=== PATIENT | female | born 1995 | race Caucasian/White ===

== ENCOUNTER → 2017-01-07 | Outpatient (CLI) | payer BC ==
[~2017-01-07] MED LIST: BIRTH CONTROL PILL; CATHETER FLUSH 10 ML SYR IV PRN; OXYC-197 PO; PRD20T PO
--- OUTSIDE RECORDS SUMMARY | 2017-01-07 11:34 | XMS REPORT | Continuity of Care Document ---
Author Author Interface Organization Interface Address Unknown Phone Unavailable Problems Problem Status Onset Date Classification Date Reported Comments Source Medications Medication Details Route Status Patient Instructions Ordering Provider Order Date Source ProAir HFA 90 mcg/inh inhalation aerosol with adapter INH Active 2 puffs 30 minutes before physical activity and every 4 hours as needed for cough, wheeze, SOB KEPUS 12/25/2012 [facility] Tylenol Cold & Flu Severe PO Documented 12/25/2012 [facility] Allergies, Adverse Reactions, Alerts Substance Category Reaction Severity Reaction type Status Date Reported Comments Source NKA Datatype(AL1.2)-Drug Allergy ACTIVE 09/20/2014 [facility] Immunizations Immunization Date Given Site Status Last Updated Comments Source Results Order Name Results Value Reference Range Date Interpretation Comments Source So Restless it is Hard to Sit Still So Restless it is Hard to Sit Still 09/20/2014 [facility] Office/Clinic Notes Office/Clinic Notes Patient: HILL ZAMARRIPA Age: 19 years Sex: Female : 97 Associated Diagnoses: None Author: Norm Welch APRN Visit Information Visit type: New symptom. Accompanied by: No one. Source of history: Self. Referral source: Self. History limitation: None. Chief Complaint Reason For Visit: Patient states she has been real sick for a week. She has had diarreah and emisis last week. States that her doctor in [place] gave her nausea medicine, but she still feels sick. She states it has gone into her head and chest. Additional Information: She states she is congested and has been coughing. Also she has a headache and aches and pains throughout her body. History of Present Illness Hill has had sx for the past week. Her sx began with n/v awakened her at 0300 and watery diarrhea, continued for 2 days. She had chills, fever and now chest and head congestion, sore throat. Review of Systems Constitutional: Fever, Chills, Fatigue, No sweats, No weakness. Eye: No discharge, No visual disturbances. Ear/Nose/Mouth/Throat: Nasal congestion, Sore throat, No ear pain. Respiratory: Cough, No shortness of breath, No sputum production, No wheezing. Cardiovascular: No chest pain, No syncope. Gastrointestinal: Nausea, Vomiting, Diarrhea, No constipation, No abdominal pain. Genitourinary: No dysuria, No change in urine stream. Gynecologic: Last menstrual period: 09/06/14. Hematology/Lymphatics: No bruising tendency, No bleeding tendency. Endocrine Immunologic: No recurrent fevers, No recurrent infections. Musculoskeletal: No back pain, No neck pain. Integumentary: No rash, No pruritus. Neurologic: Alert and oriented X4, Headache, No numbness, No tingling. 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 Procedure History: Tonsillectomy, primary or secondary; under age 14 (48999) in 2006 at 11 Years. Social History Alcohol Use Alcohol Use: Denies Caffeine Use Caffeine Use: Current Caffeine Type: Coffee Caffeine Frequency: Daily Current Tobacco Usage: Denies Education: High school Recreational Drug Use Recreational Drug Use: Denies . Physical Examination General: Alert and oriented, No acute distress. Eye: Normal conjunctiva. HENT: Normocephalic, Oral mucosa is moist, No pharyngeal erythema. Ear: Both ears, Tympanic membrane ( Intact, Calix ). Nose: Both nostrils, Within normal limits, Patent. Sinus: Bilateral, Frontal sinus, Maxillary sinus, No tenderness. Throat: Pharynx ( Posterior, thick clear drainage ). Neck: Supple. Respiratory: Lungs are clear to auscultation, Respirations are non-labored, Breath sounds are equal, Symmetrical chest wall expansion. Cardiovascular: Normal rate, Regular rhythm, No murmur, No gallop. Gastrointestinal: Soft, Non-tender, Non-distended, Normal bowel sounds. Musculoskeletal: Normal gait. Integumentary: Warm, Dry, No pallor, No rash. Neurologic: Alert, Oriented, Cranial Nerves II-XII are grossly intact, Normal deep tendon reflexes, no meningismus. Psychiatric: Appropriate mood & affect, Normal judgment. Review / Management Results review: Lab results 09/20/14 13:42 POC-Bilirubin Urine Dipstick Negative POC-Blood Urine Dipstick Negative POC-Glucose Urine Dipstick Negative POC-Ketones Urine Dipstick Negative POC-Leukocytes Urine Dipstick Negative POC-Nitrite Urine Dipstick Negative POC-pH Urine Dipstick 7 POC-Protein Urine Dipstick Negative POC-Specific [place] Urine Dipstick 1.020 POC-Urine Appearance Urine Dipstick Cloudy POC-Urine Color Urine Dipstick Yellow POC-Urobilinogen Urine Dipstick 0.2 mg/dl UA Office-Clinic Office-Clinic , All Results 09/20/2014 12:43 Height 170.1 cm Weight 62.2 kg BSA 1.7143 m2 Body Mass Index 21.5 kg/m2 BMI Percentile 55.33 Temperature Oral 36.9 DegC Peripheral Pulse Rate 77 bpm Respiratory Rate 16 br/min Systolic Blood Pressure 100 mmHg Diastolic Blood Pressure 68 mmHg Mean Arterial Pressure. 78.67 mmHg Blood Pressure Location Right arm Laterality-Pain 1 Left Location-Pain 1 Head Intensity-Pain 6 Pain Symptoms Yes Oxygen Therapy Room air Oxygen Saturation 98 % . Impression and Plan Diagnosis Cough (ICD9 786.2). Headache (ICD9 307.81). Nausea (ICD9 787.02). Orders Orders (Selected) Outpatient Orders Completed Office-Clinic: . discussed sx with pt, improving, continue to keep hydrated, ibuprofen OTC for headache, if new onset of sx or sx worsen RTC, Zofran (rx from PCP in [place]) for nausea. May return to school 09/22/14. Counseled: Patient, Regarding diagnosis, Regarding treatment, Regarding medications. Patient Instructions: INFLUENZA (Adult), Influenza, Adult Self-Care for Colds and Flu. [Electronically Signed on 09.20.2014 02:37 PM]
Norm Welch APRN
</br> 09/20/2014 [Electronically Signed on 09.20.2014 02:37 PM] Norm Welch MAKI Ramesh [facility] SMEG-Follow up routine physicals&immuns SMEG-Follow up routine physicals&immuns No No No No No No No No No 12/25/2012 [facility] Office/Clinic Notes Office/Clinic Notes <div><p style="margin:0pt; text-align:center"><span style= "background-color:#ffffff; font-family:[place]; font-size:10pt; font-weight:bold"> [facility]</span></p><p style="margin:0pt; text-align :center"><span style="background-color:#ffffff; font-family:[place]; font-size: 10pt; font-weight:bold">[address] [place] [address]</span></p><p style="margin:0pt; text-align:center"><span style="background-color:#ffffff; font-family:[place]; font-size:10pt; font-weight:bold">[place] [address]</span></p><p style= "margin:0pt; text-align:center"><span style="background-color:#ffffff; font- family:[place]; font-size:10pt; font-weight:bold">[phone] </ span></p><p style="margin:0pt; text-align:center"><span style="font-family:[place] ; font-size:10pt; font-weight:bold"></span></p><p style="margin:0pt"><span style="background-color:#ffffff; font-family:[place]; font-size:10pt">PATIENT: HILL ZAMARRIPA</span></p><p style="margin:0pt"><span style="background-color: #ffffff; font-family:[place]; font-size:10pt">MR #: [id number]</span></p><p style= "margin:0pt"><span style="background-color:#ffffff; font-family:[place]; font-size :10pt"> </span></p><p style="margin:0pt"><span style= "background-color:#ffffff; font-family:[place]; font-size:10pt">: 1994</span></p><p style="margin:0pt"><span style="background-color:#ffffff; font -family:[place]; font-size:10pt">DATE SEEN: 12/25/2012</span></p><p style="margin: 0pt"><span style="font-family:[place]; font-size:10pt"></span></p><p style= "margin:0pt"><span style="font-family:[place]; font-size:10pt"></span></p><p style="margin:0pt"><span style="background-color:#ffffff; font-family:[place]; font-size:10pt; font-weight:bold">Chief Complaint</span></p><p style="margin:0pt "><span style="background-color:#ffffff; font-family:[place]; font-size:10pt"> Patient presents today for sore throat and shortness of breath with exertion.</ span></p><p style="margin:0pt"><span style="background-color:#ffffff; font- family:[place]; font-size:10pt">Additional Information: Mack[place]</span></p><p style="margin:0pt"><span style="font-family:[place]; font-size:10pt"></span></p>< p style="margin:0pt"><span style="background-color:#ffffff; font-family:[place]; font-size:10pt; font-weight:bold">History of Present Illness</span></p><p style= "margin:0pt"><span style="background-color:#ffffff; font-family:[place]; font-size :10pt">Patient has sore throat, headache and stuffiness for a couple of days. She was short of breath this morning when she was practicing. She does not have a history of asthma or allergies. She has a tournament coming up tomorrow. She is going to see if she is okay to play.</span></p><p style="margin:0pt"><span style="font-family:[place]; font-size:10pt"></span></p><p style="margin:0pt">< span style="background-color:#ffffff; font-family:[place]; font-size:10pt; font- weight:bold">Review of Systems </span></p><p style="margin:0pt"><span style= "background-color:#ffffff; font-family:[place]; font-size:10pt">Positive per HPI for sore throat, headache, shortness of breath on exertion and stuffiness. Negative fever, chills, weight gain, weight loss, sinus congestion, ear pain, swollen glands, blurry vision, double vision, changes in vision. Negative dizziness, numbness, weakness. Negative chest pain, palpitations, edema, cough, wheezing, dyspnea on exertion. Negative heartburn, nausea, vomiting, diarrhea, constipation, abdominal pain, urinary frequency, urinary urgency, urinary incontinence, bowel incontinence, rectal bleeding. Negative ecchymosis, skin lesions, itching, rash. Negative joint pain, neck pain, back pain. Negative faintness, numbness, convulsions, tremors. Negative depression, anxiety, insomnia, suicidal ideations, homicidal ideations. Negative breast nodules, discharge or pain. Negative vaginal discharge or pain. Negative irregular menses , heavy menses, pain with menses.</span></p><p style="margin:0pt"><span style= "font-family:[place]; font-size:10pt"></span></p><p style="margin:0pt"><span style="background-color:#ffffff; font-family:[place]; font-size:10pt; font-weight: bold">Allergies</span></p><p style="margin:0pt"><span style="background-color:# ffffff; font-family:[place]; font-size:10pt">No allergy data found.</span></p><p style="margin:0pt"><span style="font-family:[place]; font-size:10pt"></span></p>< p style="margin:0pt"><span style="background-color:#ffffff; font-family:[place]; font-size:10pt; font-weight:bold">Current Medications</span></p><p style="margin :0pt"><span style="background-color:#ffffff; font-family:[place]; font-size:10pt"> Tylenol Cold & Flu Severe (APAP/dextromethorphan/guaifenesin/PE), 2 Tab, Every 4 hours</span></p><p style="margin:0pt"><span style="font-family:[place]; font- size:10pt"></span></p><p style="margin:0pt"><span style="background-color:# ffffff; font-family:[place]; font-size:10pt; font-weight:bold">Problems and Past Medical History</span></p><p style="margin:0pt"><span style="background-color:# ffffff; font-family:[place]; font-size:10pt; text-decoration:underline">Active</ span></p><p style="margin:0pt"><span style="background-color:#ffffff; font- family:[place]; font-size:10pt">Leoma-Guillain syndrome</span></p><p style="margin :0pt"><span style="font-family:[place]; font-size:10pt"></span></p><p style= "margin:0pt"><span style="background-color:#ffffff; font-family:[place]; font-size :10pt; font-weight:bold">Family History</span></p><p style="margin:0pt">< span style="background-color:#ffffff; font-family:[place]; font-size:10pt; text- decoration:underline">Cardiovascular Peds History</span></p><p style="margin:0pt "><span style="background-color:#ffffff; font-family:[place]; font-size:10pt"> High Blood Pressure Medical History: Mother</span></p><p style="margin:0pt">< span style="background-color:#ffffff; font-family:[place]; font-size:10pt; text- decoration:underline">Family Status</span></p><p style="margin:0pt"><span style= "background-color:#ffffff; font-family:[place]; font-size:10pt">Father: Living< /span></p><p style="margin:0pt"><span style="background-color:#ffffff; font- family:[place]; font-size:10pt">Sister 1: Living</span></p><p style="margin:0pt">< span style="background-color:#ffffff; font-family:[place]; font-size:10pt">Mother : Living</span></p><p style="margin:0pt"><span style="background-color:#ffffff; font-family:[place]; font-size:10pt">Paternal Grandfather: Living</span></p><p style="margin:0pt"><span style="background-color:#ffffff; font-family:[place]; font-size:10pt">Paternal Grandmother: Living</span></p><p style="margin:0pt">< span style="background-color:#ffffff; font-family:[place]; font-size:10pt"> Maternal Grandfather: Living</span></p><p style="margin:0pt"><span style= "background-color:#ffffff; font-family:[place]; font-size:10pt">Maternal Grandmother: </span></p><p style="margin:0pt"><span style="background- color:#ffffff; font-family:[place]; font-size:10pt">Brother 1: Living</span></p>< p style="margin:0pt"><span style="background-color:#ffffff; font-family:[place]; font-size:10pt; text-decoration:underline">Oncologic Peds Health History</span>< /p><p style="margin:0pt"><span style="background-color:#ffffff; font-family: [place]; font-size:10pt">Leukemia Medical History: Grandparents</span></p><p style ="margin:0pt"><span style="background-color:#ffffff; font-family:[place]; font- size:10pt; text-decoration:underline">Respiratory Peds Health History</span></p> <p style="margin:0pt"><span style="background-color:#ffffff; font-family:[place]; font-size:10pt">Asthma Medical History: Mother</span></p><p style="margin:0pt">< span style="background-color:#ffffff; font-family:[place]; font-size:10pt"> Pneumonia Medical History: Mother</span></p><p style="margin:0pt"><span style= "background-color:#ffffff; font-family:[place]; font-size:10pt">Frequent Bronchitis Medical History: Mother</span></p><p style="margin:0pt"><span style="background-color:#ffffff; font-family:[place]; font-size:10pt">Family Status Reviewed With Patient: Review complete</span></p><p style="margin:0pt"&gt ;<span style="font-family:[place]; font-size:10pt"></span></p><p style="margin: 0pt"><span style="background-color:#ffffff; font-family:[place]; font-size:10pt; font-weight:bold">Procedure History</span></p><p style="margin:0pt"><span style="background-color:#ffffff; font-family:[place]; font-size:10pt"> Tonsillectomy, primary or secondary; under age 14 at 03/2006.</span></p><p style ="margin:0pt"><span style="font-family:[place]; font-size:10pt"></span></p><p style="margin:0pt"><span style="background-color:#ffffff; font-family:[place]; font-size:10pt; font-weight:bold">Social History</span></p><p style="margin:0pt "><span style="background-color:#ffffff; font-family:[place]; font-size:10pt"> Current Tobacco Usage: Denies</span></p><p style="margin:0pt"><span style= "background-color:#ffffff; font-family:[place]; font-size:10pt">Pediatric Patient Education Level: 10th Grade</span></p><p style="margin:0pt"><span style= "background-color:#ffffff; font-family:[place]; font-size:10pt">School Attending: [employer]</span></p><p style="margin:0pt"><span style="font-family:[place]; font-size:10pt"></span></p><p style="margin:0pt"><span style="background-color: #ffffff; font-family:[place]; font-size:10pt; font-weight:bold">Physical Examination</span></p><p style="margin:0pt"><span style="background-color:# ffffff; font-family:[place]; font-size:10pt; text-decoration:underline">TEMP </ span><span style="width:25.46pt; text-indent:0pt; display:inline-block; -aw- tabstop-align:left; -ks-xyvefvb-lzp:55pt"></span><span style="background-color:# ffffff; font-family:[place]; font-size:10pt; text-decoration:underline">BP </span> <span style="width:36.44pt; text-indent:0pt; display:inline-block; -aw-tabstop- align:left; -sr-dpjylsh-bdr:105pt"></span><span style="background-color:#ffffff ; font-family:[place]; font-size:10pt; text-decoration:underline">Pulse </ span><span style="width:27.08pt; text-indent:0pt; display:inline-block; -aw- tabstop-align:left; -en-hcfyreq-mdh:155pt"></span><span style="background-color: #ffffff; font-family:[place]; font-size:10pt; text-decoration:underline">RR </span ><span style="width:35.18pt; text-indent:0pt; display:inline-block; -aw-tabstop- align:left; -id-kjwarna-col:205pt"></span><span style="background-color:#ffffff ; font-family:[place]; font-size:10pt; text-decoration:underline">MAP </span>< span style="width:26.43pt; text-indent:0pt; display:inline-block; -aw-tabstop- align:left; -su-maredat-yfb:255pt"></span><span style="background-color:# ffffff; font-family:[place]; font-size:10pt; text-decoration:underline">O2 Sat </ span></p><p style="margin:0pt"><span style="background-color:#ffffff; font- family:[place]; font-size:10pt">36.5</span><span style="width:37.79pt; text-indent :0pt; display:inline-block; -ap-kilpddb-fsaes:left; -kh-dysxkhb-ybs:55pt"></span ><span style="background-color:#ffffff; font-family:[place]; font-size:10pt">110/ 70</span><span style="width:20.94pt; text-indent:0pt; display:inline-block; -aw- tabstop-align:left; -ry-hqplsei-oxt:105pt"></span><span style="background-color: #ffffff; font-family:[place]; font-size:10pt">65</span><span style="width:40pt; text-indent:0pt; display:inline-block; -nd-hpsufld-szndq:left; -ks-wcpxkcw-pnx: 155pt"></span><span style="background-color:#ffffff; font-family:[place]; font- size:10pt">22</span><span style="width:40pt; text-indent:0pt; display:inline- block; -jv-czhondj-wkvqi:left; -vs-teiwybb-hkn:205pt"></span><span style= "background-color:#ffffff; font-family:[place]; font-size:10pt">83.33</span><span style="width:27.79pt; text-indent:0pt; display:inline-block; -dr-bqxbkgs-ehmcq: left; -qg-ihiszxx-bhz:255pt"></span><span style="background-color:#ffffff; font- family:[place]; font-size:10pt">100</span></p><p style="margin:0pt"><span style= "font-family:[place]; font-size:10pt"></span></p><p style="margin:0pt"><span style="background-color:#ffffff; font-family:[place]; font-size:10pt">Blood Pressure Location: Right arm </span></p><p style="margin:0pt"><span style="font- family:[place]; font-size:10pt"></span></p><p style="margin:0pt"><span style= "background-color:#ffffff; font-family:[place]; font-size:10pt; text-decoration: underline">Weight </span><span style="width:94.02pt; text-indent:0pt; display: inline-block; -ox-wxahmbd-hmogv:left; -kd-oflkjyx-psa:125pt"></span><span style= "background-color:#ffffff; font-family:[place]; font-size:10pt; text-decoration: underline">Height </span><span style="width:36.19pt; text-indent:0pt; display: inline-block; -vx-svmivtb-zpeum:left; -kl-vvszqdf-vhs:190pt"></span><span style= "background-color:#ffffff; font-family:[place]; font-size:10pt; text-decoration: underline">BMI </span><span style="width:29.8pt; text-indent:0pt; display:inline -block; -sj-nsomsan-xbevl:left; -hl-adomuuh-gxm:240pt"></span><span style= "background-color:#ffffff; font-family:[place]; font-size:10pt; text-decoration: underline">BSA </span></p><p style="margin:0pt"><span style="background-color:# ffffff; font-family:[place]; font-size:10pt">62.5 kg (137.79 lbs)</span><span style="width:49.47pt; text-indent:0pt; display:inline-block; -mn-kbmudhe-bcmor: left; -tw-tydswdy-fvj:125pt"></span><span style="background-color:#ffffff; font- family:[place]; font-size:10pt">170.1 cm</span><span style="width:29.28pt; text- indent:0pt; display:inline-block; -tn-yumyrmm-lnvbk:left; -rn-cwplgpu-uqs:190pt "></span><span style="background-color:#ffffff; font-family:[place]; font-size: 10pt">21.6 kg/m2</span><span style="width:5.6pt; text-indent:0pt; display:inline -block; -qb-bmbdxmo-oqtgk:left; -xb-uuvguks-qzh:240pt"></span><span style= "background-color:#ffffff; font-family:[place]; font-size:10pt">1.7185 m2</span></ p><p style="margin:0pt"><span style="font-family:[place]; font-size:10pt"></span> </p><p style="margin:0pt"><span style="background-color:#ffffff; font-family: [place]; font-size:10pt">A 17 year old female in no apparent distress. Awake and oriented x3. Normocephalic. Conjunctiva clear. Tympanic membrane unremarkable. Oropharynx is pink without exudate. Positive frontal and maxillary sinus tenderness. Neck is supple. Negative lymphadenopathy. Heart rate and rhythm is regular without murmur. Lungs are clear to auscultation bilaterally. Gait is steady. Neuro intact. Mental affect is appropriate.</span></p><p style="margin: 0pt"><span style="font-family:[place]; font-size:10pt"></span></p><p style= "margin:0pt"><span style="background-color:#ffffff; font-family:[place]; font-size :10pt; font-weight:bold">Impression</span></p><p style="margin:0pt"><span style= "background-color:#ffffff; font-family:[place]; font-size:10pt">1. Acute Sinusitis (461.9)</span></p><p style="margin:0pt"><span style="background-color: #ffffff; font-family:[place]; font-size:10pt">2. Reactive Airway Disease (493.90)< /span></p><p style="margin:0pt"><span style="font-family:[place]; font-size:10pt"> </span></p><p style="margin:0pt"><span style="background-color:#ffffff; font- family:[place]; font-size:10pt; font-weight:bold">Plan</span></p><p style="margin: 0pt"><span style="background-color:#ffffff; font-family:[place]; font-size:10pt; font-weight:bold">Medication changes this visit:</span></p><p style="margin:0pt "><span style="background-color:#ffffff; font-family:[place]; font-size:10pt; text -decoration:underline">New</span></p><p style="margin:0pt"><span style= "background-color:#ffffff; font-family:[place]; font-size:10pt">Amoxil 875 mg oral tablet, 875 mg, BID, 10 Day(s), Quantity: 20, Refills: 0</span></p><p style ="margin:0pt"><span style="background-color:#ffffff; font-family:[place]; font- size:10pt">ProAir HFA 90 mcg/inh inhalation aerosol with adapter, 2 Puff(s), QID , Quantity: 1, Refills: 0</span></p><p style="margin:0pt"><span style="font- family:[place]; font-size:10pt"></span></p><p style="margin:0pt"><span style= "background-color:#ffffff; font-family:[place]; font-size:10pt">I am going to go ahead and give her some amoxicillin twice a day for the next 10 days as well as a ProAir inhaler, she can use 2 puffs every 4 hours as needed for cough, wheeze , shortness of breath and definitely use it 15-30 minutes prior to her basketball practice and games. I am going to release her to play though as long as she is afebrile. Patient will follow up if she has any further concerns. </ span></p><p style="margin:0pt"><span style="font-family:[place]; font-size:10pt"> </span></p><p style="margin:0pt"><span style="font-family:[place]; font-size:10pt "></span></p><p style="margin:0pt"><span style="font-family:[place]; font-size: 10pt"></span></p><p style="margin:0pt"><span style="background-color:#ffffff; font-family:[place]; font-size:10pt">TR:</span><span style="width:14.48pt; text- indent:0pt; display:inline-block; -pd-tcqpqzs-rdipi:left; -xs-fypwpym-igt:30pt"> </span><span style="background-color:#ffffff; font-family:[place]; font-size:10pt ">[id number]</span></p><p style="margin:0pt"><span style="background-color:#ffffff ; font-family:[place]; font-size:10pt">DD:</span><span style="width:12.63pt; text- indent:0pt; display:inline-block; -xa-mdmpmkp-ytbie:left; -so-qycesxl-dcr:30pt"> </span><span style="background-color:#ffffff; font-family:[place]; font-size:10pt ">12/25/2012 12:35 </span></p><p style="margin:0pt"><span style="background- color:#ffffff; font-family:[place]; font-size:10pt">DT:</span><span style="width: 13.31pt; text-indent:0pt; display:inline-block; -wc-imyisyv-hxsmh:left; -aw- tabstop-pos:30pt"></span><span style="background-color:#ffffff; font-family: [place]; font-size:10pt">12/27/2012 14:28</span></p><p style="margin:0pt"><span style="font-family:[place]; font-size:10pt"></span></p><p style="margin:0pt "><span style="background-color:#ffffff; font-family:[place]; font-size:10pt">STEFANIE# :</span><span style="width:2.84pt; text-indent:0pt; display:inline-block; - os-qguhmpk-cudfj:left; -dw-mmmxovt-ehy:30pt"></span><span style="background- color:#ffffff; font-family:[place]; font-size:10pt">[id number]</span></p><p style= "margin:0pt"><span style="font-family:[place]; font-size:10pt"></span></p></div> [Electronically Signed on 01.01.2013 03:37 PM]
Stacy Landis APRN
</br> 12/25/2012 [Electronically Signed on 01.01.2013 03:37 PM] Stacy Landis APRN [facility] Vital Signs Vital Sign Value Date Comments Source Encounters Location Location Details Encounter Type Encounter Number Reason For Visit Attending Provider ADM Date DC Date Status Source [facility] [id number] SORE THROAT AND SOA STACY LANDIS 12/25/2012 Active [facility] [id number] EST CARE/POSS URI NORM WELCH 09/20/2014 Active [facility] He Walk in [facility] [id number] [address], Walk In 201212/01/2012 Active [facility] He Walk in [facility] [id number], Walk In 04/04/2015 Active [facility] Procedures Procedure Code Date Perfomer Comments Source
--- NOTE | 2017-01-07 13:57 | Diagnostic Imaging Report ---
EXAMINATION: HIDA with EF measurements Indication: Abdominal pain TECHNIQUE: After the intravenous administration of 5.3 mCi of Tc 99m Choletec, imaging over the abdomen was obtained. This was followed by administration of Ensure orally to stimulate intrinsic CCK secretion, followed by continued imaging with ejection fraction measured. FINDINGS: There is homogeneous uptake in the liver with prompt bile duct and gallbladder filling seen. Bowel activity is seen at 20 minutes. Based on further imaging and gallbladder area of interest activity measurements after the administration of Ensure, the gallbladder ejection fraction is estimated at 50%. IMPRESSION: 1. Normal hepatobiliary uptake and Gallbladder filling. 2. Borderline gallbladder ejection fraction. The patient complained of nausea after ensure ingestion. Correlate clinically. Dictated by: Dictated on workstation # [id number]
== END ==
LOC: CARD 11:30
PROVIDERS: ATTEND Nurse Practitioner Family
DX: R11.0 Nausea (principal); R19.7 Diarrhea, unspecified
CPT/HCPCS: 78227

== ENCOUNTER → 2017-01-09 | Outpatient (CLI) | payer BC ==
[~2017-01-09] MED LIST changes: -CATHETER FLUSH 10 ML SYR IV PRN
--- NOTE | 2017-01-09 12:24 | Diagnostic Imaging Report ---
PROCEDURE: US Gallbladder. TECHNIQUE: Multiple real-time grayscale images were obtained over the right upper quadrant in various projections. INDICATION: Right upper quadrant pain. FINDINGS: The pancreas appears unremarkable. The liver demonstrates no focal lesion. Hepatopetal flow in the portal vein is seen. The gallbladder demonstrates no stones or wall thickening. The CBD is 0.4 cm in caliber. The right kidney is 10.1 cm in length with no hydronephrosis or focal lesion. No fluid collection seen in the upper right abdomen. Sonographic Long's sign is reportedly negative. IMPRESSION: Unremarkable exam. Dictated by: Dictated on workstation # [id number]
== END ==
LOC: RAD 10:47
PROVIDERS: ATTEND Surgery
DX: R10.11 Right upper quadrant pain (principal)
CPT/HCPCS: 76705

== ENCOUNTER → 2017-01-11 | Outpatient (CLI) | payer BC | LOC: PREOP 05:34 | PROVIDERS: ATTEND Surgery | DX: Z01.818 Encounter for other preprocedural examination (principal); K82.8 Other specified diseases of gallbladder ==

== ENCOUNTER 2017-01-16 07:33 | Day surgery (SDC) | payer BC ==
[~2017-01-16] VITALS: Ht 170.2 cm; Wt 62.1 kg
[~2017-01-16 07:33] MED LIST changes: -BIRTH CONTROL PILL; -OXYC-197 PO
[2017-01-16] MEDS: LACTATED RINGERS 1,000 ML IV PRN ×2 (08:00→09:30)
[2017-01-16 08:01] LABS: MEAN PLATELET VOLUME 10.6 FL (7.4-10.4); RED BLOOD COUNT 4.96 10^6/uL (4.35-5.85); RED CELL DISTRIBUTION WIDTH 13.1 % (10.0-14.5); WHITE BLOOD COUNT 5.4 10^3/uL (4.3-11.0)
[2017-01-16] MEDS ORDERED: ceFAZolin 1,000 MG (ANCEF) VIAL ONE (08:03)
[2017-01-16] MEDS ORDERED: NS (IVPB) 50 ML ONE (08:03)
[2017-01-16] MEDS ORDERED: metroNIDAZOLE 500MG/100ML IVPB 100 ML ONE (08:03)
[2017-01-16] MEDS ORDERED: MIDAZOLAM 2 MG/2 ML (VERSED) VIAL ONE (08:06)
[2017-01-16] MEDS ORDERED: fentaNYL INJECTION 100 MCG/2 ML AMP ONE ×2 (08:06→10:39)
[2017-01-16] MEDS ORDERED: proPOfol 200 MG/20 ML (DIPRIVAN) VIAL IV ONE (08:06)
[2017-01-16] MEDS ORDERED: LIDOCAINE JELLY 2% (XYLOCAINE) 5 ML TUBE ONE (08:06)
[2017-01-16] MEDS ORDERED: LIDOCAINE PF 2% 10 ML (XYLOCAINE) AMP ONE (08:06)
[2017-01-16] MEDS ORDERED: DEXAMETHASONE PF 10 MG/ML (DECADRON) VIAL ONE (08:06)
[2017-01-16] MEDS ORDERED: ROCURONIUM 50 MG/5 ML (ZEMURON) VIAL IV ONE (08:06)
[2017-01-16] MEDS ORDERED: BUP/EPI 0.25% 1:200,000 (MARCAINE) 30 ML VIAL ONE (08:06)
[2017-01-16] MEDS ORDERED: ONDANSETRON 4 MG/2 ML (SDV) Z0FRAN ONE ×2 (08:06→10:28)
[2017-01-16] MEDS ORDERED: BIRTH CONTROL PILL (08:22)
[2017-01-16 08:24] LABS: ALANINE AMINOTRANSFERASE 22 U/L (0-55); ALBUMIN 4.4 G/DL (3.2-4.5); ANION GAP 10 MMOL/L (5-14); ASPARTATE AMINO TRANSFERASE 22 U/L (5-34); BILIRUBIN,TOTAL 0.5 MG/DL (0.1-1.0); BLOOD UREA NITROGEN 15 MG/DL (7-18); BUN/CREATININE RATIO 18; CALCIUM 9.4 MG/DL (8.5-10.1); CARBON DIOXIDE 23 MMOL/L (21-32); CHLORIDE 108 MMOL/L (98-107); CREATININE SERUM 0.84 MG/DL (0.60-1.30); GFR ESTIMATED > 60; GLUCOSE 86 MG/DL (70-105); POTASSIUM 4.1 MMOL/L (3.6-5.0); SODIUM 141 MMOL/L (135-145)
[2017-01-16 08:29] VITALS: BP 116/87
[2017-01-16] MEDS ORDERED: metroNIDAZOLE 500 MG/100 ML IVPB (PRE-MIX) IV ONE (08:30)
[2017-01-16] MEDS ORDERED: ceFAZolin 1 GM/NS 50 ML IVPB IV ONE ×2 (08:30)
[2017-01-16] MEDS ORDERED: CATHETER FLUSH 10 ML SYR IV PRN (08:30)
--- NOTE | 2017-01-16 08:58 | Progress Note-Pre Operative ---
Pre-Operative Progress Note H&P Reviewed The H&P was reviewed, patient examined and no changes noted. Date H&P Reviewed: Jan 16, 2017 Time H&P Reviewed: 08:58 Pre-Operative Diagnosis: Chronic cholecystitis TURNER CROWDER MD Jan 16, 2017 8:58 am
[2017-01-16] MEDS ORDERED: LACTATED RINGERS 1,000 ML IV ONE (09:33)
[2017-01-16] MEDS ORDERED: GLYCOPYRROLATE 0.2 MG/ML (ROBINUL) 2 ML VIAL ONE (09:49)
[2017-01-16] MEDS ORDERED: NEOSTIGMINE (BLOXIVERZ ) 1 MG/1ML 10 ML VIAL ONE (09:49)
[2017-01-16] MEDS ORDERED: SEVOFLURANE (ULTANE) 15 ML INHAL SOLN ONE ×4 (09:56)
--- NOTE | 2017-01-16 09:56 | Discharge Inst-Simple/Standard ---
Discharge Inst-Standard Discharge Medications New, Converted or Re-Newed RX: RX on Chart Patient Instructions/Follow Up Plan of Care/Instructions/FU: dressings off in 48 hours. Incentive spirometry.. Follow-up in 3 weeks. Activity as Tolerated: Yes Discharge Diet: No Restrictions TURNER CROWDER MD Jan 16, 2017 9:56 am
--- NOTE | 2017-01-16 09:56 | Progress Note-Post Operative ---
Post-Operative Progess Note Pre-Operative Diagnosis Chronic cholecystitis Post-Operative Diagnosis same Post-Op Procedure Note Date of Procedure: Jan 16, 2017 Name of Procedure: robotic-assisted cholecystectomy Anesthesia Type Gen. Estimated blood loss (mL): minimal Specimen(s) collected gallbladder TURNER CROWDER MD Jan 16, 2017 9:55 am
[2017-01-16] MEDS ORDERED: OXYC-197 PO (10:04)
--- NOTE | 2017-01-16 10:05 | Discharge Inst-Simple/Standard ---
Discharge Inst-Standard Discharge Medications New, Converted or Re-Newed RX: RX on Chart Patient Instructions/Follow Up Plan of Care/Instructions/FU: Dressings off in 48 hours. Incentive spirometry. F/U in 3 weeks Activity as Tolerated: Yes Discharge Diet: No Restrictions TURNER CROWDER MD Jan 16, 2017 10:05
[2017-01-16] MEDS ORDERED: ONDANSETRON 4 MG/2 ML (SDV) Z0FRAN IV ONE (10:15)
[2017-01-16] MEDS ORDERED: fentaNYL INJECTION 100 MCG/2 ML AMP IV PRN (10:15)
[2017-01-16] MEDS ORDERED: morphine INJ 10 MG/ML 1ML (SYR OR VIAL) ONE (10:19)
[2017-01-16] MEDS: morphine INJ 10 MG/ML 1ML (SYR OR VIAL) IV PRN ×2 (10:25→10:30)
[2017-01-16 11:10] VITALS: BP 125/80
[2017-01-16 11:40] VITALS: BP 124/87
[2017-01-16] MEDS ORDERED: oxyCODONE/APAP 5/325MG (PERCOCET 5) TABLET PO ONE (11:45)
[2017-01-16 12:10] VITALS: BP 126/88
[2017-01-16 12:33] VITALS: BP 126/88
--- NOTE | 2017-01-17 09:31 | OPERATIVE REPORT ---
PROCEDURE PHYSICIAN: TURNER CROWDER DATE OF PROCEDURE: 01/16/2017 PREOPERATIVE DIAGNOSIS: Chronic acalculous cholecystitis. POSTOPERATIVE DIAGNOSIS: Chronic acalculous cholecystitis. OPERATION: Robotic assisted cholecystectomy. SURGEON: Andres. ANESTHESIA: General anesthesia. BLOOD LOSS: Minimal. FLUIDS: 1200 mL of crystalloids. TYPE OF WOUND: Type II (clean-contaminant wound). INDICATION FOR THE PROCEDURE: This young lady presented with severe symptoms due to chronic, acalculous cholecystitis. Despite normal ejection fraction during the injection of HIDA scan, her symptoms were reproduced, supporting the diagnosis of chronic acalculous cholecystitis. Therefore, it was felt reasonable to offer cholecystectomy using minimally invasive technique. An informed consent was obtained after reviewing the operative details and complications of wound infection, bile leak and persistence of her symptoms. DESCRIPTION OF PROCEDURE: She was placed supine on the operative table and general anesthesia induced using an endotracheal tube. A gram of Ancef and 500 mg of Flagyl were administered intravenously as prophylaxis against wound infection. Sequential compression devices were placed around her legs, to minimize the risk of venous thrombosis. Abdomen was prepared and draped in the usual sterile manner. A subumbilical incision was made and the pneumoperitoneum established using a Veress needle. Intra-abdominal pressure was maintained at 15 mmHg. A 12 mm trocar was placed and anatomy visualized using the 3-dimensional, high definition laparoscope associated with da Nathan system. Under direct view, I placed an 8 mm trocar over each side of the abdomen, followed by a 5 mm trocar over the left upper quadrant, to facilitate retracting the fundus of the gallbladder. The patient was then turned into steep reverse Trendelenburg position and the robotic system docked place. The fundus of the gallbladder was retracted using a grasper introduced via the 5 mm trocar and infundibulum grasped with Cadiere forceps. The peritoneum overlying Calot's triangle was incised using hook cautery, delineating the cystic duct and artery. Both were divided between locking clips. Cholecystectomy was then completed using hook cautery. The gallbladder was then placed in an Endo Catch bag and removed via the subumbilical trocar site. The fascia over this incision was closed using number 1 Vicryl under direct laparoscopic view. Skin incisions were closed using 4-0 Vicryl, in a subcuticular fashion. 0.25% Marcaine with epinephrine was infiltrated along the incisions, both preemptively and at the conclusion of the operation. She tolerated the procedure well, was extubated in the operating room and taken to the recovery room in a stable condition. [place], sponges, and instruments were correct at the end of the operation. Job ID: [id number] Dictated Date: 01/16/2017 09:55:04 Maintenance Inspector Date: 01/17/2017 09:18:06 / herb BUCK
== END 2017-01-16 12:33 | disposition home or self-care (01) ==
LOC: SDC 07:33
PROVIDERS: ATTEND Surgery
DX: K81.1 Chronic cholecystitis (principal); Z11.2 Encounter for screening for other bacterial diseases
CPT/HCPCS: 36415; 80053; 84703; 85027; 87081; 88304; 94664

== ENCOUNTER 2017-01-23 16:20 | Emergency (ER) | payer BC ==
[~2017-01-23 16:20] MED LIST changes: -IOHEXOL 350 MG/ML 100 ML (OMNIPAQUE 350) VIAL IV ONE; -NS 100 ML (IVPB) BAG IV ONE
== END 2017-01-23 16:38 | disposition home or self-care (01) ==
LOC: EDUNIT# 16:20 → ER 16:21
DX: R07.9 Chest pain, unspecified (principal); Z53.29 Procedure and treatment not carried out because of patient's decision for other reasons

== ENCOUNTER → 2017-01-23 | Outpatient (CLI) | payer BC ==
[~2017-01-23] MED LIST changes: +BIRTH CONTROL PILL; +IOHEXOL 350 MG/ML 100 ML (OMNIPAQUE 350) VIAL IV ONE; +NS 100 ML (IVPB) BAG IV ONE; +OXYC-197 PO
--- NOTE | 2017-01-23 17:48 | Diagnostic Imaging Report ---
PROCEDURE: CT angiography of the chest with contrast. TECHNIQUE: Multiple contiguous axial images were obtained through the chest after uneventful bolus administration of intravenous contrast. Reconstructed CTA MIP acquisitions were also performed. Omnipaque 350 was administered intravenously. INDICATION: Chest pain. FINDINGS: The pulmonary arteries are well opacified with no filling defects to suggest pulmonary embolism. The thoracic aorta is normal in caliber. No aortic dissection. The heart size is normal. No mediastinal or hilar significantly enlarged lymph nodes. No axillary lymphadenopathy. Tiny calcified granulomas in the right hilum are seen. There is slight soft tissue thickening from thymic remnant seen in the anterior mediastinum, a normal finding at the patient's age. The lungs demonstrate no significant consolidation, mass or suspicious nodule. Sections of the upper abdomen demonstrate no significant abnormality. The osseous structures appear grossly unremarkable. IMPRESSION: No evidence of pulmonary embolism. No significant abnormality. Dictated by: Dictated on workstation # [id number]
== END ==
LOC: RAD 17:09
PROVIDERS: ATTEND Surgery
DX: G89.18 Other acute postprocedural pain (principal); R07.9 Chest pain, unspecified
CPT/HCPCS: 71275

== ENCOUNTER → 2017-05-16 | Outpatient (CLI) | payer BC | DX: Z01.818 Encounter for other preprocedural examination (principal); K21.9 Gastro-esophageal reflux disease without esophagitis ==

== ENCOUNTER 2017-05-20 06:41 | Day surgery (SDC) | payer BC ==
[~2017-05-20] VITALS: Ht 170.2 cm; Wt 62.1 kg
[2017-05-20] MEDS ORDERED: FLUMAZENIL (ROMAZICON) 0.1 MG/ML 5 ML VIAL INJ PRN (07:00)
[2017-05-20] MEDS ORDERED: NALOXONE 0.4 MG/ML 1 ML (NARCAN) VIAL IVP PRN (07:00)
[2017-05-20] MEDS ORDERED: NS IV 500 ML 500 ML IV SCH (07:00)
[2017-05-20] MEDS ORDERED: HURRICAINE EXT TUBE (BENZOCAINE) XX PRN (07:00)
[2017-05-20 07:09] VITALS: BP 124/96
[2017-05-20] MEDS ORDERED: HURRICAINE EXT TUBE (BENZOCAINE) ONE (07:56)
[2017-05-20] MEDS ORDERED: fentaNYL INJECTION 100 MCG/2 ML AMP ONE (07:56)
[2017-05-20] MEDS ORDERED: MIDAZOLAM 2 MG/2 ML (VERSED) VIAL ONE ×4 (07:56)
[2017-05-20] MEDS: MIDAZOLAM 2 MG/2 ML (VERSED) VIAL IVP PRN ×3 (08:00→08:06)
[2017-05-20] MEDS: fentaNYL INJECTION 100 MCG/2 ML AMP IVP PRN ×2 (08:01→08:04)
[2017-05-20 08:30] VITALS: BP 124/78
--- NOTE | 2017-05-20 08:32 | Endoscopy Procedure Report ---
Endoscopy Report Date: May 20, 2017 Preoperative Diagnosis: GERD. Epigastric pain Study Performed: Upper Endoscopy Procedure Instrument: Endoscope Endo Procedure/Findings Findings 1.: Hiatal Hernia, Gastritis Recommendations: Recommendations: 1.: Start Medication(s) TURNER CROWDER MD May 20, 2017 8:32 am
--- NOTE | 2017-05-20 08:32 | Conscious Sedation/ASA ---
Conscious Sedation Pre-Proced Time Reviewed: 07:49 ASA Class: 1 Airway Mallampati Classification: ([facility] appropriate class) I. II. III, IV Lungs Heart ASA score ASA 1: a normal healthy patient ASA 2: a patient with a mild systemic disease (mid diabetes, controlled hypertension, obesity ASA 3: a patient with a severe systemic disease that limits activity (angina , COPD, prior Myocardial infarction) ASA 4: a patient with an incapacitating disease that is a constant threat to life (CHF, renal failure) ASA 5: a moribund patient not expected to survive 24 hrs. (ruptured aneurysm) ASA 6: a declared brain patient whose organs are being harvested. For emergent operations, add the letter E after the classification Grade 1 Sedation Plan: Discussed options with patient/fam Note The patient is an appropriate candidate to undergo the planned procedure, sedation, and anesthesia. The patient immediately re-assessed prior to indication. TURNER CROWDER MD May 20, 2017 8:31 am
[2017-05-20] MEDS ORDERED: PANT40TA2 PO (08:33)
--- NOTE | 2017-05-20 08:33 | Discharge Inst-Simple/Standard ---
Discharge Inst-Standard Discharge Medications New, Converted or Re-Newed RX: RX on Chart Patient Instructions/Follow Up Plan of Care/Instructions/FU: follow-up when necessary. To avoid nonsteroidals Activity as Tolerated: Yes Discharge Diet: No Restrictions TURNER CROWDER MD May 20, 2017 8:33 am
[2017-05-20 09:00] VITALS: BP 116/87
--- NOTE | 2017-05-20 09:02 | OPERATIVE REPORT ---
DATE OF SERVICE: 05/20/2017 PROCEDURE: Upper gastrointestinal endoscopy with antral biopsy. SURGEON: Turner Crowder MD INDICATION FOR PROCEDURE: This young lady reported symptoms of reflux disease and substernal pain. In addition, she also reported epigastric pain at frequent intervals. Therefore, it was felt reasonable to perform an upper endoscopy for further evaluation. Informed consent was obtained after reviewing the procedure in detail. DESCRIPTION OF PROCEDURE: She was placed in left lateral decubitus position and her vital signs were monitored. Conscious sedation was achieved using Versed and fentanyl. The flexible gastroscope was introduced down the esophagus, past the stomach, into the proximal duodenum. FINDINGS: ESOPHAGUS: Short hiatal hernia with Grade I esophagitis. STOMACH: Quite severe distal gastritis. Biopsy for H. pylori was obtained. DUODENUM: Changes of duodenitis were found along the first part. She tolerated the procedure well and was taken back to the nursing area in a stable condition. IMPRESSION: Epigastric and substernal pain. Esophagitis and gastritis. Helicobacter status pending. Job ID: [id number] DocumentID: [id number] Dictated Date: 05/20/2017 08:31:06 Hospital Education Coordinator Date: 05/20/2017 09:01:46 Dictated By: TURNER CROWDER MD [facility]
[2017-05-20 09:37] VITALS: BP 116/87
--- OUTSIDE RECORDS SUMMARY | 2017-05-20 21:09 | XMS REPORT | Continuity of Care Document ---
Author Author [employer] Organization Wendy Address Unknown Phone Unavailable Care Team Providers Care Still Runner Name Role Phone [employer] Unavailable Unavailable Problems Medications Medication Details Route Status Patient Instructions Ordering Provider Order Date Source ProAir HFA 90 mcg/inh inhalation aerosol with adapter INH Active 2 puffs 30 minutes before physical activity and every 4 hours as needed for cough, wheeze, SOB KEPUS 12/25/2012 [facility] Tylenol Cold & Flu Severe PO Documented 12/25/2012 [facility] Allergies, Adverse Reactions, Alerts Substance Category Reaction Severity Reaction type Status Date Reported Comments Source NKA Datatype(AL1.2)-Drug Allergy ACTIVE 09/20/2014 [facility] Immunizations Results Order Name Results Value Reference Range Date Interpretation Comments Source Office/Clinic Notes Office/Clinic Notes Patient: HILL ZAMARRIPA Age: 19 years Sex: Female : 97 Associated Diagnoses: None Author: Jania Dunn, MAKI Visit Information Visit type: New symptom. Accompanied by: No one. Source of history: Self. Referral source: Self. History limitation: None. Chief Complaint Reason For Visit: Patient states she has been real sick for a week. She has had diarreah and emisis last week. 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 Procedure History: Tonsillectomy, primary or secondary; under age 14 (89807) in 2006 at 11 Years. Social History [...] Dipstick 7 POC-Protein Urine Dipstick Negative POC-Specific [place] Urine Dipstick 1.020 POC-Urine Appearance Urine Dipstick Cloudy POC-Urine Color Urine Dipstick Yellow POC-Urobilinogen Urine Dipstick 0.2 mg/dl Office-Clinic Office-Clinic , All Results 09/20/2014 12:43 [...] worsen RTC, Zofran (rx from PCP in [place]) for nausea. May return to school 09/22/14. Counseled: Patient, Regarding diagnosis, Regarding treatment, Regarding medications. Patient Instructions: INFLUENZA (Adult), Influenza, Adult Self-Care for Colds and Flu. [Electronically Signed on 09.20.2014 02:37 PM]
Jania Dunn APRN
</br> 09/20/2014 [Electronically Signed on 09.20.2014 02:37 PM] Jania DunnMAKI [facility] So Restless it is Hard to Sit Still So Restless it is Hard to Sit Still 09/20/2014 [facility] Office/Clinic Notes Office/Clinic Notes [facility] [address] [phone] PATIENT: HILL ZAMARRIPA MR #: [id number] : 1995 DATE SEEN: 12/25/2012 Chief Complaint Patient presents today for sore throat and shortness of breath with exertion. Additional Information: Mackenzie History of Present Illness Patient has sore throat, headache and stuffiness for a couple of days. She was short of breath this morning when she was practicing. She does not have a history of asthma or allergies. She has a tournament coming up tomorrow. She is going to see if she is okay to play. Review of Systems Positive per HPI for sore throat, headache, shortness of breath on exertion and stuffiness. Negative fever, chills, weight gain, weight loss, sinus congestion, ear pain, swollen glands, blurry vision, double vision, changes in vision. Negative dizziness, numbness, weakness. Negative chest pain, palpitations, edema , cough, wheezing, dyspnea on exertion. Negative heartburn, nausea, vomiting, diarrhea, constipation, abdominal pain, urinary frequency, urinary urgency, urinary incontinence, bowel incontinence, rectal bleeding. Negative ecchymosis, skin lesions, itching, rash. Negative joint pain, neck pain, back pain. Negative faintness, numbness, convulsions, tremors. Negative depression, anxiety , insomnia, suicidal ideations, homicidal ideations. Negative breast nodules, discharge or pain. Negative vaginal discharge or pain. Negative irregular menses , heavy menses, pain with menses. Allergies No allergy data found. Current Medications Tylenol Cold & Flu Severe (APAP/dextromethorphan/guaifenesin/PE), 2 Tab, Every 4 hours Problems and Past Medical History Active Alhambra-Guillain syndrome Family History Cardiovascular Peds History High Blood Pressure Medical History: Mother Family Status Father: Living Sister 1: Living Mother: Living Paternal Grandfather: Living Paternal Grandmother: Living Maternal Grandfather: Living Maternal Grandmother: Brother 1: Living Oncologic Peds Health History Leukemia Medical History: Grandparents Respiratory Peds Health History Asthma Medical History: Mother Pneumonia Medical History: Mother Frequent Bronchitis Medical History: Mother Family Status Reviewed With Patient: Review complete Procedure History Tonsillectomy, primary or secondary; under age 14 at 03/2006. Social History Current Tobacco Usage: Denies Pediatric Patient Education Level: 10th Grade School Attending: charla manly sarah Physical Examination TEMP BP Pulse RR MAP O2 Sat 36.5110/[id number] Blood Pressure Location: Right arm Weight Height BMI BSA 62.5 kg (137.79 lbs)170.1 cm21.6 kg/m21.7185 m2 A 17 year old female in no apparent distress. Awake and oriented x3. Normocephalic. Conjunctiva clear. Tympanic membrane unremarkable. Oropharynx is pink without exudate. Positive frontal and maxillary sinus tenderness. Neck is supple. Negative lymphadenopathy. Heart rate and rhythm is regular without murmur. Lungs are clear to auscultation bilaterally. Gait is steady. Neuro intact. Mental affect is appropriate. Impression 1. Acute Sinusitis (461.9) 2. 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 I am going to release her to play though as long as she is afebrile. Patient will follow up if she has any further concerns. TR:[id number] STEFANIE#:[id number] [Electronically Signed on 01.01.2013 03:37 PM]
Stacy Keith APRN
</br> 12/25/2012 [Electronically Signed on 01.01.2013 03:37 PM] Stacy KeithMAKI [facility] SMEG-Follow up routine physicals&immuns SMEG-Follow up routine physicals&immuns No CD:[id number] No CD:[id number] No CD:[id number] No CD:[id number] No CD:[id number] No CD:[id number] No CD:[id number] No CD:[id number] No 12/25/2012 [facility] Vital Signs Encounters Location Location Details Encounter Type Encounter Number Reason For Visit Attending Provider ADM Date DC Date Status Source [facility] [place] Walk in [facility] [id number] [address], Walk In 201212/01/2012 Active [facility] [id number] SORE THROAT AND SOA STACY SABIHA 12/25/2012 Active [facility] [id number] EST CARE/POSS URI JANIA WORMINGTON 09/20/2014 Active [facility] Walk [facility] [place] [address], Walk In 04/04/2015 [facility] Procedures Plan of Care Social History Assessment and Plan Family History Value Date Source Advance Directives Order Name Results Value Date Source
--- OUTSIDE RECORDS SUMMARY | 2017-05-20 21:10 | XMS REPORT | Continuity of Care Document ---
Author Author [facility] Organization [facility] Address Unknown Phone Unavailable Allergies Active Description Code Type Severity Reaction Onset Reported/Identified Relationship to Patient Clinical Status Yes No Known Drug Allergies [id number] Drug Allergy Mild N/A 11/08/2009 Yes influenza virus vacc,specific [id number] Drug Allergy Moderate Guillain-[place]' 01/03/2015 Yes influenza virus vaccine, specific [id number] Drug Allergy Moderate Guillain-[place]' 01/03/2015 Medications Problems Date Dx Coded Attending Type Code Diagnosis Diagnosed By 01/03/2015 BENITA LERMA MD Ot 466.0 ACUTE BRONCHITIS 01/03/2015 BENITA LERMA MD Ot 511.0 PLEURISY W/O EFFUS OR TB 01/03/2015 BENITA LERMA MD Ot 786.50 CHEST PAIN NOS 01/07/2017 Ot 836.0 TEAR MED MENISC KNEE-CUR 01/07/2017 Ot 836.1 TEAR LAT MENISC KNEE-CUR 01/07/2017 Ot 844.0 SPRAIN LATERAL LEXY LIG 01/07/2017 Ot E000.8 OTHER EXTERNAL CAUSE STATUS 01/07/2017 Ot E029.9 OTHER ACTIVITY 01/07/2017 Ot E849.4 ACCID IN RECREATION AREA 01/07/2017 Ot E928.9 ACCIDENT NOS 01/07/2017 BEULAH BELL MD Ot 729.5 PAIN IN LIMB 01/07/2017 MARYCARMEN MAXWELL-Katerin Ot 737.30 IDIOPATHIC SCOLIOSIS 01/10/2017 VEL SANTOS, TURNER Quinteros Ot R10.11 RIGHT UPPER QUADRANT PAIN 01/14/2017 VEL SANTOS, TURNER Quinteros Ot K82.8 OTHER SPECIFIED DISEASES OF GALLBLADDER 01/14/2017 TURNER CROWDER MD Ot Z01.818 ENCOUNTER FOR OTHER PREPROCEDURAL EXAMIN 01/16/2017 Ot 836.0 TEAR MED MENISC KNEE-CUR 01/16/2017 Ot 836.1 TEAR LAT MENISC KNEE-CUR 01/16/2017 Ot 844.0 SPRAIN LATERAL LEXY LIG 01/16/2017 Ot E000.8 OTHER EXTERNAL CAUSE STATUS 01/16/2017 Ot E029.9 OTHER ACTIVITY 01/16/2017 Ot E849.4 ACCID IN RECREATION AREA 01/16/2017 Ot E928.9 ACCIDENT NOS 01/16/2017 ARABELLA SANTOS, BEULAH Ot 729.5 PAIN IN LIMB 01/16/2017 MARYCARMEN MAXWELL CHIEF SPECIALIST LEED-C Ot 737.30 IDIOPATHIC SCOLIOSIS 01/16/2017 SILVERKAREN R CHIEF SPECIALIST LEED Ot R11.0 NAUSEA 01/16/2017 KAREN SHEPPARD R CHIEF SPECIALIST LEED Ot R19.7 DIARRHEA, UNSPECIFIED 01/16/2017 VEL SANTOS, TURNER Quinteros Ot R10.11 RIGHT UPPER QUADRANT PAIN 01/16/2017 VEL SANTOS, TRUNER Quinteros Ot K82.8 OTHER SPECIFIED DISEASES OF GALLBLADDER 01/16/2017 VEL SANTOS, TURNER Quinteros Ot Z01.818 ENCOUNTER FOR OTHER PREPROCEDURAL EXAMIN 01/16/2017 Ot 836.0 TEAR MED MENISC KNEE-CUR 01/16/2017 Ot 836.1 TEAR LAT MENISC KNEE-CUR 01/16/2017 Ot 844.0 SPRAIN LATERAL LEXY LIG 01/16/2017 Ot E000.8 OTHER EXTERNAL CAUSE STATUS 01/16/2017 Ot E029.9 OTHER ACTIVITY 01/16/2017 Ot E849.4 ACCID IN RECREATION AREA 01/16/2017 Ot E928.9 ACCIDENT NOS 01/16/2017 ARABELLA SANTOS, BEULAH Ot 729.5 PAIN IN LIMB 01/16/2017 MARYCARMEN MAXWELL CHIEF SPECIALIST LEED-C Ot 737.30 IDIOPATHIC SCOLIOSIS 01/16/2017 KAREN SHEPPARD R CHIEF SPECIALIST LEED Ot R11.0 NAUSEA 01/16/2017 KAREN SHEPPARD R CHIEF SPECIALIST LEED Ot R19.7 DIARRHEA, UNSPECIFIED 01/16/2017 VEL SANTOS, TURNER Quinteros Ot R10.11 RIGHT UPPER QUADRANT PAIN 01/16/2017 VEL SANTOS, TURNER Quinteros Ot K82.8 OTHER SPECIFIED DISEASES OF GALLBLADDER 01/16/2017 VEL SANTOS, TURNER Quinteros Ot Z01.818 ENCOUNTER FOR OTHER PREPROCEDURAL EXAMIN 01/16/2017 VEL SANTOS, TURNER Quinteros Ot K81.1 CHRONIC CHOLECYSTITIS 01/16/2017 TURNER CROWDER MD Ot Z11.2 ENCOUNTER FOR SCREENING FOR OTHER BACTER 01/16/2017 TURNER CROWDER MD Ot K82.8 OTHER SPECIFIED DISEASES OF GALLBLADDER 01/16/2017 TURNER CROWDER MD Ot Z01.818 ENCOUNTER FOR OTHER PREPROCEDURAL EXAMIN 01/17/2017 TURNER CROWDER MD Ot K81.1 CHRONIC CHOLECYSTITIS 01/17/2017 TURNER CROWDER MD Ot Z11.2 ENCOUNTER FOR SCREENING FOR OTHER BACTER 01/22/2017 TURNER CROWDER MD Ot K81.1 CHRONIC CHOLECYSTITIS 01/22/2017 TURNER CROWDER MD Ot Z11.2 ENCOUNTER FOR SCREENING FOR OTHER BACTER 01/23/2017 Ot 836.0 TEAR MED MENISC KNEE-CUR 01/23/2017 Ot 836.1 TEAR LAT MENISC KNEE-CUR 01/23/2017 Ot 844.0 SPRAIN LATERAL LEXY LIG 01/23/2017 Ot E000.8 OTHER EXTERNAL CAUSE STATUS 01/23/2017 Ot E029.9 OTHER ACTIVITY 01/23/2017 Ot E849.4 ACCID IN RECREATION AREA 01/23/2017 Ot E928.9 ACCIDENT NOS 01/23/2017 ARABELLA SANTOS, BEULAH Ot 729.5 PAIN IN LIMB 01/23/2017 MARYCARMEN MAXWELL CHIEF SPECIALIST LEED-C Ot 737.30 IDIOPATHIC SCOLIOSIS 01/23/2017 KAREN SHEPPARD CHIEF SPECIALIST LEED Ot R11.0 NAUSEA 01/23/2017 KAREN SHEPPARD CHIEF SPECIALIST LEED Ot R19.7 DIARRHEA, UNSPECIFIED 01/23/2017 TURNER CROWDER MD Ot R10.11 RIGHT UPPER QUADRANT PAIN 01/23/2017 TURNER CROWDER MD Ot K82.8 OTHER SPECIFIED DISEASES OF GALLBLADDER 01/23/2017 TURNER CROWDER MD Ot Z01.818 ENCOUNTER FOR OTHER PREPROCEDURAL EXAMIN 01/23/2017 Ot 836.0 TEAR MED MENISC KNEE-CUR 01/23/2017 Ot 836.1 TEAR LAT MENISC KNEE-CUR 01/23/2017 Ot 844.0 SPRAIN LATERAL LEXY LIG 01/23/2017 Ot E000.8 OTHER EXTERNAL CAUSE STATUS 01/23/2017 Ot E029.9 OTHER ACTIVITY 01/23/2017 Ot E849.4 ACCID IN RECREATION AREA 01/23/2017 Ot E928.9 ACCIDENT NOS 01/23/2017 ARABELLA SANTOS, BEULAH Ot 729.5 PAIN IN LIMB 01/23/2017 MARYCARMEN MAXWELL CHIEF SPECIALIST LEED-C Ot 737.30 IDIOPATHIC SCOLIOSIS 01/23/2017 SILVER KAREN R CHIEF SPECIALIST LEED Ot R11.0 NAUSEA 01/23/2017 SILVER KAREN R CHIEF SPECIALIST LEED Ot R19.7 DIARRHEA, UNSPECIFIED 01/23/2017 VEL SANTOS, TURNER Quinteros Ot R10.11 RIGHT UPPER QUADRANT PAIN 01/23/2017 VEL SANTOS, TURNER Quinteros Ot K82.8 OTHER SPECIFIED DISEASES OF GALLBLADDER 01/23/2017 VEL SANTOS, TURNER Quinteros Ot Z01.818 ENCOUNTER FOR OTHER PREPROCEDURAL EXAMIN 01/24/2017 GENESIS SANTOS, LILIYA Bolaños Ot R07.9 CHEST PAIN, UNSPECIFIED 01/24/2017 GENESIS SANTOS, LILIYA Bolaños Ot Z53.29 PROC/TRTMT NOT CRD OUT BEC PT DECISION F 01/24/2017 VEL SANTOS, TURNER Quinteros Ot G89.18 OTHER ACUTE POSTPROCEDURAL PAIN 01/24/2017 VEL SANTOS, TURNER Quinteros Ot R07.9 CHEST PAIN, UNSPECIFIED 01/24/2017 SILVER KAREN R CHIEF SPECIALIST LEED Ot R11.0 NAUSEA 01/24/2017 KAREN SHEPPARD R CHIEF SPECIALIST LEED Ot R19.7 DIARRHEA, UNSPECIFIED 01/24/2017 VEL SANTOS, TURNER Quinteros Ot R10.11 RIGHT UPPER QUADRANT PAIN 02/13/2017 VEL SANTOS, TURNER Quinteros Ot G89.18 OTHER ACUTE POSTPROCEDURAL PAIN 02/13/2017 VEL SANTOS, TURNER Quinteros Ot R07.9 CHEST PAIN, UNSPECIFIED 05/13/2017 VEL SANTOS, TURNER Quinteros Ot G89.18 OTHER ACUTE POSTPROCEDURAL PAIN 05/13/2017 VEL SANTOS, TURNRE Quinteros Ot R07.9 CHEST PAIN, UNSPECIFIED 05/17/2017 VEL SANTOS, TURNER Quinteros Ot K21.9 GASTRO-ESOPHAGEAL REFLUX DISEASE WITHOUT 05/17/2017 VEL SANTOS, TURNER Quinteros Ot Z01.818 ENCOUNTER FOR OTHER PREPROCEDURAL EXAMIN Procedures Results Test Result Range Urine beta human chorionic gonadotropin (hCG) measurement - 01/16/17 07:50 Urine beta human chorionic gonadotropin (hCG) measurement NEGATIVE NEGATIVE Automated blood complete blood count (hemogram) panel - 01/16/17 07:51 Blood leukocytes automated count (number/volume) 5.4 10*3/ uL 4.3-11.0 Blood erythrocytes automated count (number/volume) 4.96 10*6 /uL 4.35-5.85 Venous blood hemoglobin measurement (mass/volume) 14.0 g/dL 11.5-16.0 Blood hematocrit (volume fraction) 41 % 35-52 Automated erythrocyte mean corpuscular volume 84 [foz_us] 80-99 Automated erythrocyte mean corpuscular hemoglobin (mass per erythrocyte) 28 pg 25-34 Automated erythrocyte mean corpuscular hemoglobin concentration measurement ( mass/volume) 34 g/dL 32-36 Automated erythrocyte distribution width ratio 13.1 % 10.0-14.5 Automated blood platelet count (count/volume) 227 10*3/uL 130-400 Automated blood platelet mean volume measurement 10.6 [foz_ us] 7.4-10.4 Comprehensive metabolic panel - 01/16/17 07:51 Serum or plasma sodium measurement (moles/volume) 141 mmol/ L 135-145 Serum or plasma potassium measurement (moles/volume) 4.1 mmol/L 3.6-5.0 Serum or plasma chloride measurement (moles/volume) 108 mmol /L 98-107 Carbon dioxide 23 mmol/L 21-32 Serum or plasma anion gap determination (moles/volume) 10 mmol/L 5-14 Serum or plasma urea nitrogen measurement (mass/volume) 15 mg/dL 7-18 Serum or plasma creatinine measurement (mass/volume) 0.84 mg /dL 0.60-1.30 Serum or plasma urea nitrogen/creatinine mass ratio 18 NRG Serum or plasma creatinine measurement with calculation of estimated glomerular filtration rate > NRG Serum or plasma glucose measurement (mass/volume) 86 mg/dL 70-105 Serum or plasma calcium measurement (mass/volume) 9.4 mg/dL 8.5-10.1 Serum or plasma total bilirubin measurement (mass/volume) 0.5 mg/dL 0.1-1.0 Serum or plasma alkaline phosphatase measurement (enzymatic activity/volume) 62 U/L 40-136 Serum or plasma aspartate aminotransferase measurement (enzymatic activity/ volume) 22 U/L 5-34 Serum or plasma alanine aminotransferase measurement (enzymatic activity/volume ) 22 U/L 0-55 Serum or plasma protein measurement (mass/volume) 7.0 g/dL 6.4-8.2 Serum or plasma albumin measurement (mass/volume) 4.4 g/dL 3.2-4.5 Methicillin resistant Staphylococcus aureus (MRSA) screening culture - 08:10 Methicillin resistant Staphylococcus aureus (MRSA) screening culture NEG NRG Encounters ACCT No. Visit Date/Time Discharge Status Pt. Type Provider Facility Loc./Unit Complaint [id number] 01/23/2017 16:21:00 2016 16:38:00 DIS Emergency LILIYA HURTADO MD [facility] ER CHEST PAIN [id number] 01/16/2017 07:33:00 2016 12:33:00 DIS Outpatient TURNER CROWDER MD [facility] SDC DYSKNESIA [id number] 01/03/2015 14:17:00 2014 16:06:00 DIS Emergency BENITA LERMA MD [facility] ER CHEST PAIN [id number] 07/09/2014 08:59:00 2013 23:59:59 CLS Outpatient MARYCARMEN MAXWELLP-C [facility] RAD SCOLIOSIS [id number] 04/21/2013 14:42:00 2012 23:59:59 CLS Outpatient BEULAH BELL MD [facility] RAD CALF PAIN [id number] 05/20/2017 08:00:00 PEN Preadmit TURNER CROWDER MD [facility] ENDO GERD [id number] 05/16/2017 06:15:00 ACT Outpatient TURNER CROWDER MD [facility] PREOP EGD [id number] 01/23/2017 17:09:00 ACT Outpatient TURNER CROWDER MD [facility] RAD POST OP CHEST PAIN [id number] 01/11/2017 05:34:00 ACT Outpatient TURNER CROWDER MD [facility] PREOP DYSKNESIA [id number] 01/09/2017 10:47:00 ACT Outpatient TURNER CROWDER MD [facility] RAD RT UPPER QUAD PAIN [id number] 01/07/2017 11:30:00 ACT Outpatient KAREN SHEPPARD CHIEF SPECIALIST LEED [facility] CARD NAUSEA AFTER MEALS,DIARRHEA [id number] 01/29/2012 08:05:00 Document Registration
== END 2017-05-20 09:15 | disposition home or self-care (01) ==
LOC: ENDO 06:41
PROVIDERS: ATTEND Surgery
DX: K20.9 Esophagitis, unspecified (principal); K29.50 Unspecified chronic gastritis without bleeding
CPT/HCPCS: 84703

== ENCOUNTER 2017-08-10 19:56 | Emergency (ER) | payer BC ==
[~2017-08-10] VITALS: Ht 170.2 cm; Wt 63.5 kg
[~2017-08-10 19:56] MED LIST changes: +PANT40TA2 PO
--- OUTSIDE RECORDS SUMMARY | 2017-08-10 20:01 | XMS REPORT | Continuity of Care Document ---
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 Role Phone [employer] Unavailable Unavailable Problems Medications Medication Details Route Status Patient Instructions Ordering Provider Order Date Source ProAir HFA 90 mcg/inh inhalation aerosol with adapter INH Active 2 puffs 30 minutes before physical activity and every 4 hours as needed for cough, wheeze, SOB KEPUS 12/25/2012 [facility] Tylenol Cold & Flu Severe PO Documented 12/25/2012 [facility] Allergies, Adverse Reactions, Alerts Substance Category Reaction Severity Reaction type Status Date Reported Comments Source NKA Datatype(AL1.2)-Drug Allergy ACTIVE 09/20/2014 [facility] Immunizations Results Order Name Results [...] last week. 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 Procedure History: Tonsillectomy, primary or secondary; under age 14 ([id number]) in 2006 at 11 Years. Social History [...] Dipstick 7 POC-Protein Urine Dipstick Negative POC-Specific [place] Urine Dipstick 1.020 POC-Urine Appearance Urine Dipstick [...] worsen RTC, Zofran (rx from PCP in [place]) for nausea. May return to school 09/22/14. 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 TR:[id number] STEFANIE#:[id number] [Electronically Signed on 01.01.2013 03:37 PM]
Stacy Keith APRN
</br> 12/25/2012 [Electronically Signed on 01.01.2013 03:37 PM] Stacy KeithMAKI [facility] SMEG-Follow up routine physicals&immuns SMEG-Follow up routine physicals&immuns No CD:[id number] No CD:[id number] No CD:[id number] No CD:[id number] No CD:[id number] No CD:[id number] No CD:[id number] No CD:[id number] No 12/25/2012 [facility] Vital Signs Encounters Location Location Details Encounter Type Encounter Number Reason For Visit Attending Provider ADM Date DC Date Status Source [facility] Walk in [facility] [id number] [address], Walk In 201212/01/2012 Active [facility] [id number] SORE THROAT AND SOA STACY SABIHA 12/25/2012 Active [facility] [id number] EST CARE/POSS URI JANIA WORMINGTON 09/20/2014 Active [facility] [place] [facility] [place] [address], Walk [place] 04/04/2015 [facility] Procedures Plan of Care Social History Assessment and Plan Family History Value Date Source Advance Directives Order Name Results Value Date Source
[2017-08-10] MEDS ORDERED: AZIT500T PO (20:04)
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
[2017-08-10] MEDS ORDERED: RX-CYCLOBENZAPRINE 10 MG (FLEXERIL) TAB PPK#3 PO STA (21:31)
[2017-08-10] MEDS ORDERED: RX-HYDROCODONE/APAP 5/325 MG #4 TAB PK PO PRN (21:45)
[2017-08-10] MEDS ORDERED: TRAM50TA2 PO (21:47)
[2017-08-10] MEDS ORDERED: CYCL10TA9 PO (21:47)
[2017-08-10 21:57] VITALS: BP 118/85
== END 2017-08-10 21:51 | disposition home or self-care (01) ==
LOC: ER 19:56
DX: S09.90XA Unspecified injury of head, initial encounter (principal); S39.012A Strain of muscle, fascia and tendon of lower back, initial encounter; S13.9XXA Sprain of joints and ligaments of unspecified parts of neck, initial encounter; K21.9 Gastro-esophageal reflux disease without esophagitis; Z90.89 Acquired absence of other organs; V43.52XA Car driver injured in collision with other type car in traffic accident, initial encounter; Y92.410 Unspecified street and highway as the place of occurrence of the external cause
CPT/HCPCS: 70450; 72125; 99283

== ENCOUNTER → 2017-12-10 | Outpatient (CLI) | payer BC ==
[~2017-12-10] MED LIST changes: +AZIT500T PO; +CYCL10TA9 PO; +TRAM50TA2 PO
--- NOTE | 2017-12-10 14:20 | Diagnostic Imaging Report ---
EXAMINATION: Cervical spine. INDICATION: Injury, neck pain. TECHNIQUE: AP, lateral, and odontoid views were obtained. FINDINGS: The previous CT cervical spine exam performed on 08/10/2017 failed to show any sign of an acute abnormality. On the lateral view of this exam, the vertebral body heights and alignment seem to be generally within normal limits. The intervertebral spaces are well-maintained. There is no fracture or acute bony abnormality evident. There is no sign of retropharyngeal edema. The lung apices are clear. IMPRESSION: 1. There is no evidence for an acute bony abnormality. 2. These results were discussed with MAXINE Oconnor. Dictated on workstation # [id number]
== END ==
LOC: RAD 13:19
PROVIDERS: ATTEND Family Medicine
DX: M54.12 Radiculopathy, cervical region (principal)
CPT/HCPCS: 72040

== ENCOUNTER 2018-01-10 13:30 | Outpatient (RCR) | payer BC | END 2018-02-28 12:20 | disposition home or self-care (01) | PROVIDERS: ATTEND Family Medicine | DX: M54.12 Radiculopathy, cervical region (principal) ==

== ENCOUNTER → 2018-01-24 | Outpatient (CLI) | payer BC ==
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
== END ==
LOC: RAD 07:50
PROVIDERS: ATTEND Family Medicine
DX: M50.122 Cervical disc disorder at C5-C6 level with radiculopathy (principal)
CPT/HCPCS: 72141

== ENCOUNTER 2018-02-03 22:17 | Emergency (ER) | payer BC ==
[~2018-02-03] VITALS: Ht 170.2 cm; Wt 65.8 kg
[2018-02-04] MEDS ORDERED: KETOROLAC 30 MG/ML VIAL IVP STA (01:21)
[2018-02-04] MEDS ORDERED: NS IV 1000 ML 1,000 ML IV ONE (01:21)
--- NOTE | 2018-02-04 01:46 | ED General ---
General Chief Complaint: Cough/Cold/Flu Symptoms Stated Complaint: COLD/FLU SX/HEAD PAIN Nursing Triage Note: pt c/o fever, congestion, cough, nausea starting yesterday. Nursing Sepsis Screen: No Definite Risk Source of Information: Patient Exam Limitations: No Limitations History of Present Illness Date Seen by Provider: Feb 04, 2018 Time Seen by Provider: 01:15 Initial Comments Here with report of fever, cough, congestion and nausea starting yesterday. Influenza test done yesterday and that was negative. Complains of neck pain that appears to be more bilateral. She does retain full range of motion. She is concerned about the fever and the neck pain. Timing/Duration: 24 Hours Severity: Moderate Associated Systoms: Cough, Fever/Chills, No Nausea/Vomiting, No Shortness of Air, No Weakness Allergies and Home Medications Allergies Coded Allergies: influenza virus vaccine, specific (Unverified Adverse Reaction, Intermediate, Guillain-Millen', 01/03/15) Home Medications Cyclobenzaprine HCl 10 Mg Tablet, 10 MG PO Q8H PRN for SPASMS Prescribed by: AKASH LARES on 08/10/172146 Tramadol HCl 50 Mg Tablet, 50 MG PO Q4H PRN for pain Prescribed by: AKASH LARES on 08/10/172146 Patient Home Medication List Home Medication List Reviewed: Yes Constitutional: see HPI, chills, fever, No weakness EENTM: nose congestion, No ear pain Respiratory: cough, short of breath Cardiovascular: no symptoms reported Gastrointestinal: no symptoms reported Genitourinary: no symptoms reported Musculoskeletal: see HPI, muscle pain, neck pain Skin: no symptoms reported Psychiatric/Neurological: No Symptoms Reported All Other Systems Reviewed Negative Unless Noted: Yes Past Fetuxge-Ksfkkj-Ipbhlu Hx Patient Social History Alcohol Use: Occasionally Uses Recreational Drug Use: No Smoking Status: Never a Smoker 2nd Hand Smoke Exposure: No Recent Foreign Travel: No Contact w/Someone Who Travel: No Recent Infectious Disease Expo: No Recent Hopitalizations: No Immunizations Up To Date Tetanus Booster (TDap): Less than 5yrs PED Vaccines UTD: Yes Seasonal Allergies Seasonal Allergies: No Surgeries History of Surgeries: Yes (WISDOM TEETH, ACL REPAIRS) Surgeries: Gallbladder, Orthopedic, Tonsillectomy Respiratory History of Respiratory Disorde: No Cardiovascular History of Cardiac Disorders: No Neurological History of Neurological Disord: No Reproductive System Last Menstrual Period: Jan 13, 2018 Hx Reproductive Disorders: No Sexually Transmitted Disease: No HIV/AIDS: No Female Reproductive Disorders: Denies Genitourinary History of Genitourinary Disor: No Gastrointestinal History of Gastrointestinal Di: No Gastrointestinal Disorders: Gastroesophageal Reflux Musculoskeletal History of Musculoskeletal Dis: No Endocrine History of Endocrine Disorders: No HEENT History of HEENT Disorders: No Cancer History of Cancer: No Psychosocial History of Psychiatric Problem: No Integumentary History of Skin or Integumenta: No Blood Transfusions History of Blood Disorders: No Adverse Reaction to a Blood Tr: No Reviewed Nursing Assessment Reviewed/Agree w Nursing PMH: Yes Family Medical History Significant Family History: No Pertinent Family Hx Physical Exam Vital Signs Vital Signs - First Documented 02/03/18 22:38 Temp 99.7 Pulse 85 Resp 18 B/P (MAP) 127/88 (101) Capillary Refill : Less Than 3 Seconds General Appearance: No Apparent Distress, WD/WN HEENT: PERRL/EOMI, Pharyngeal Erythema, Other (moderate bilateral nasal congestion with moderate erythema) Neck: Full Range of Motion, Supple, No Lymphadenopathy (L), No Lymphadenopathy (R), Tender Lateral, No Tender Midline Respiratory: Lungs Clear, Normal Breath Sounds Cardiovascular: Regular Rate, Rhythm, No Murmur Gastrointestinal: Non Tender, Soft Back: Normal Inspection, No CVA Tenderness, No Vertebral Tenderness Extremity: Normal Range of Motion, Non Tender, No Calf Tenderness Neurologic/Psychiatric: Alert, Oriented x3 Skin: Normal Color, Warm/Dry Progress/Results/Core Measures Suspected Sepsis Recent Fever Within 48 Hours: No Infection Criteria Present: None New/Unexplained Altered Menta: No Sepsis Screen: No Definite Risk Sepsis Diagnosis: SIRS Temperature:99.7 Pulse: 85 Respiratory Rate: 18 Laboratory Tests 02/04/18 01:37: White Blood Count 10.8 Blood Pressure 127 /88 Mean: 101 Laboratory Tests 02/04/18 01:37: Creatinine 0.75, Platelet Count 181, Total Bilirubin 1.0 Results/Orders Lab Results Laboratory Tests Test 02/04/18 01:37 Range/Units White Blood Count 10.8 4.3-11.0 10^3/uL Red Blood Count 4.38 4.35-5.85 10^6/uL Hemoglobin 13.2 11.5-16.0 G/DL Hematocrit 37 35-52 % Mean Corpuscular Volume 85 80-99 FL Mean Corpuscular Hemoglobin 30 25-34 PG Mean Corpuscular Hemoglobin Concent 36 32-36 G/DL Red Cell Distribution Width 12.0 10.0-14.5 % Platelet Count 181 130-400 10^3/uL Mean Platelet Volume 10.8 H 7.4-10.4 FL Neutrophils (%) (Auto) 70 42-75 % Lymphocytes (%) (Auto) 20 12-44 % Monocytes (%) (Auto) 8 0-12 % Eosinophils (%) (Auto) 2 0-10 % Basophils (%) (Auto) 0 0-10 % Neutrophils # (Auto) 7.6 1.8-7.8 X 10^3 Lymphocytes # (Auto) 2.1 1.0-4.0 X 10^3 Monocytes # (Auto) 0.9 0.0-1.0 X 10^3 Eosinophils # (Auto) 0.2 0.0-0.3 10^3/uL Basophils # (Auto) 0.0 0.0-0.1 10^3/uL Sodium Level 141 135-145 MMOL/L Potassium Level 3.6 3.6-5.0 MMOL/L Chloride Level 109 H 98-107 MMOL/L Carbon Dioxide Level 22 21-32 MMOL/L Anion Gap 10 5-14 MMOL/L Blood Urea Nitrogen 7 7-18 MG/DL Creatinine 0.75 0.60-1.30 MG/DL Estimat Glomerular Filtration Rate > 60 BUN/Creatinine Ratio 9 Glucose Level 93 70-105 MG/DL Calcium Level 9.5 8.5-10.1 MG/DL Total Bilirubin 1.0 0.1-1.0 MG/DL Aspartate Amino Transf (AST/SGOT) 15 5-34 U/L Alanine Aminotransferase (ALT/SGPT) 16 0-55 U/L Alkaline Phosphatase 54 40-136 U/L C-Reactive Protein High Sensitivity 1.14 H 0.00-0.50 MG/DL Total Protein 6.9 6.4-8.2 GM/DL Albumin 4.4 3.2-4.5 GM/DL My Orders Orders - BENITA LERMA MD Cbc With Automated Diff (02/04/18 01:21) Comprehensive Metabolic Panel (02/04/18 01:21) Hs C Reactive Protein (02/04/18 01:21) Saline Lock/Iv-Start (02/04/18 01:21) Ns Iv 1000 Ml (Sodium Chloride 0.9%) (02/04/18 01:21) Ketorolac Injection (Toradol Injection) (02/04/18 01:21) Medications Given in ED Current Medications Medications Dose Ordered Sig/Glynn Route Start Time Stop Time Status Last Admin Dose Admin Sodium Chloride 1,000 ml @ 0 mls/hr Q0M ONCE IV 02/04/18 01:21 02/04/18 01:22 DC 02/04/18 01:35 1,000 MLS/HR Vital Signs/I&O Vital Sign - Last 12Hours 02/03/18 22:38 Temp 99.7 Pulse 85 Resp 18 B/P (MAP) 127/88 (101) Capillary Refill : Less Than 3 Seconds Blood Pressure Mean: 101 Progress Note : Progress Note Seen and evaluated. IV, labs, normal saline 1 L bolus and Toradol 30 mg IV ordered. Monitor patient. 0400: Patient is improved overall. Labs reviewed. No indication of serious bacterial infection and patient is much better. I do not believe that she has meningitis symptoms currently. We did discuss return precautions and concerning symptoms. She feels much better would like to go home. Discharge home with return precautions. Patient and her friend verbalize understanding instructions and agreement with plan. Departure Impression Impression: Primary Impression: Influenza-like symptoms Additional Impression: Fever Qualified Codes: R50.9 - Fever, unspecified Disposition: HOME, SELF-CARE Condition: Improved Departure-Patient Inst. Decision time for Depature: 04:05 Referrals: YESENIA LEES MD (PCP/Family) Primary Care Physician Patient Instructions: Fever, Adult (DC), Flu, Adult (DC) Add. Discharge Instructions: All discharge instructions reviewed with patient and/or family. Voiced understanding. Drink plenty of fluids. Take ibuprofen 800 mg every 8 hours as needed for pain. You may take Tylenol or gusf-mhh-fuafvcl cold medicine such as DayQuil per package directions. Follow up with your DrMario in a few days for recheck. Return for worse pain, fever, vomiting, vision or balance problems, weakness, rash or other concerns as needed. BENITA LERMA MD Feb 04, 2018 01:46
[2018-02-04 01:48] LABS: BASOPHILS % (AUTO) 0 % (0-10); EOSINOPHILS # (AUTO) 0.2 10^3/uL (0.0-0.3); EOSINOPHILS % (AUTO) 2 % (0-10); HEMATOCRIT 37 % (35-52); HEMOGLOBIN 13.2 G/DL (11.5-16.0); LYMPHOCYTES # (AUTO) 2.1 X 10^3 (1.0-4.0); LYMPHOCYTES % (AUTO) 20 % (12-44); MEAN CORPUSCULAR HEMOGLOBIN 30 PG (25-34); MEAN CORPUSCULAR HGB CONC 36 G/DL (32-36); MEAN CORPUSCULAR VOLUME 85 FL (80-99); MEAN PLATELET VOLUME 10.8 FL (7.4-10.4); MONOCYTES # (AUTO) 0.9 X 10^3 (0.0-1.0); MONOCYTES % (AUTO) 8 % (0-12); NEUTROPHILS # (AUTO) 7.6 X 10^3 (1.8-7.8); NEUTROPHILS % (AUTO) 70 % (42-75); PLATELET COUNT 181 10^3/uL (130-400); RED BLOOD COUNT 4.38 10^6/uL (4.35-5.85); WHITE BLOOD COUNT 10.8 10^3/uL (4.3-11.0)
[2018-02-04 02:10] LABS: ALANINE AMINOTRANSFERASE 16 U/L (0-55); ALBUMIN 4.4 GM/DL (3.2-4.5); ALKALINE PHOSPHATASE 54 U/L (40-136); BUN/CREATININE RATIO 9; CALCIUM 9.5 MG/DL (8.5-10.1); CARBON DIOXIDE 22 MMOL/L (21-32); CHLORIDE 109 MMOL/L (98-107); CREATININE SERUM 0.75 MG/DL (0.60-1.30); GFR ESTIMATED > 60; GLUCOSE 93 MG/DL (70-105); POTASSIUM 3.6 MMOL/L (3.6-5.0); SODIUM 141 MMOL/L (135-145); TOTAL PROTEIN 6.9 GM/DL (6.4-8.2)
[2018-02-04 04:14] VITALS: BP 127/88
== END 2018-02-04 04:14 | disposition home or self-care (01) ==
LOC: EDUNIT# 22:17 → ER 22:18
DX: J11.1 Influenza due to unidentified influenza virus with other respiratory manifestations (principal); K21.9 Gastro-esophageal reflux disease without esophagitis; Z88.7 Allergy status to serum and vaccine; Z90.89 Acquired absence of other organs
CPT/HCPCS: 36415; 80053; 85025; 86141; 96374

== ENCOUNTER 2018-06-16 05:30 | Outpatient (CLI) | payer BC ==
[~2018-06-16] VITALS: Ht 170.2 cm; Wt 60.8 kg
[2018-06-16] MEDS ORDERED: DESO1TAB72 PO (13:27)
== END 2018-06-16 13:51 | disposition home or self-care (01) ==
LOC: PREOP 05:30
PROVIDERS: ATTEND Obstetrics & Gynecology
DX: Z01.818 Encounter for other preprocedural examination (principal)

== ENCOUNTER 2018-06-18 10:54 | Day surgery (SDC) | payer BC ==
[~2018-06-18] VITALS: Ht 170.2 cm; Wt 60.8 kg
[~2018-06-18 10:54] MED LIST changes: +DESO1TAB72 PO
[2018-06-18 11:00] VITALS: BP 128/94
[2018-06-18] MEDS ORDERED: LACTATED RINGERS 1,000 ML IV PRN (11:08)
[2018-06-18] MEDS ORDERED: ceFAZolin 1 GM/NS 50 ML IVPB IV ONE ×2 (11:15)
[2018-06-18] MEDS ORDERED: ceFAZolin INJECTION 1,000 MG in NS (IVPB) 50 ML IV ONE (11:15)
[2018-06-18] MEDS ORDERED: DEXAMETHASONE 10 MG/ML (DECADRON) 1 ML VIAL ONE (11:32)
[2018-06-18] MEDS ORDERED: LIDOCAINE PF 2% 5 ML (XYLOCAINE) VIAL ONE (11:32)
[2018-06-18] MEDS ORDERED: ROCURONIUM 10 MG/ML 5 ML SYRINGE IV ONE (11:32)
[2018-06-18] MEDS ORDERED: proPOfol 200 MG/20 ML (DIPRIVAN) VIAL IV ONE (11:32)
[2018-06-18] MEDS ORDERED: ONDANSETRON 4 MG/2 ML (SDV) Z0FRAN ONE ×2 (11:32→14:15)
[2018-06-18] MEDS ORDERED: MIDAZOLAM 2 MG/2 ML (VERSED) VIAL ONE (11:32)
[2018-06-18] MEDS ORDERED: fentaNYL INJECTION 100 MCG/2 ML AMP ONE ×3 (11:32→14:57)
[2018-06-18 11:38] LABS: BASOPHILS % (AUTO) 0 % (0-10); EOSINOPHILS # (AUTO) 0.1 10^3/uL (0.0-0.3); EOSINOPHILS % (AUTO) 1 % (0-10); HEMATOCRIT 38 % (35-52); HEMOGLOBIN 13.2 G/DL (11.5-16.0); LYMPHOCYTES % (AUTO) 40 % (12-44); MEAN CORPUSCULAR HEMOGLOBIN 29 PG (25-34); MEAN CORPUSCULAR HGB CONC 35 G/DL (32-36); MEAN CORPUSCULAR VOLUME 84 FL (80-99); MEAN PLATELET VOLUME 10.4 FL (7.4-10.4); MONOCYTES # (AUTO) 0.4 X 10^3 (0.0-1.0); MONOCYTES % (AUTO) 7 % (0-12); NEUTROPHILS # (AUTO) 2.5 X 10^3 (1.8-7.8); NEUTROPHILS % (AUTO) 51 % (42-75); PLATELET COUNT 192 10^3/uL (130-400); RED BLOOD COUNT 4.51 10^6/uL (4.35-5.85); RED CELL DISTRIBUTION WIDTH 12.7 % (10.0-14.5); WHITE BLOOD COUNT 4.9 10^3/uL (4.3-11.0)
[2018-06-18] MEDS ORDERED: SEVOFLURANE (ULTANE) 15 ML INHAL SOLN ONE ×3 (11:43→14:16)
[2018-06-18] MEDS ORDERED: MIDAZOLAM 2 MG/2 ML (VERSED) VIAL IV ONE (12:00)
[2018-06-18] MEDS ORDERED: BUP/EPI 0.5% 1:200,000 (SENSORCAINE) 30 ML VIAL ONE (12:39)
--- NOTE | 2018-06-18 13:14 | Progress Note-Pre Operative ---
Pre-Operative Progress Note H&P Reviewed The H&P was reviewed, patient examined and no changes noted. Date Seen by Provider: Jun 18, 2018 Time Seen by Provider: 13:13 Date H&P Reviewed: Jun 18, 2018 Time H&P Reviewed: 13:13 Pre-Operative Diagnosis: SHIRLEY TRINIDAD MD Jun 18, 2018 1:14 pm
[2018-06-18] MEDS ORDERED: KETOROLAC 30 MG/ML VIAL IVP ONE (13:15)
[2018-06-18] MEDS ORDERED: ONDANSETRON 4 MG/2 ML (SDV) Z0FRAN IVP PRN ×2 (13:15→14:30)
[2018-06-18] MEDS ORDERED: MEPERIDINE (DEMEROL) INJ 100 MG/ML IM ONE (13:15)
[2018-06-18] MEDS ORDERED: D5 LR IV SOLUTION 1,000 ML IV SCH (13:15)
[2018-06-18] MEDS ORDERED: oxyCODONE/APAP 5/325MG (PERCOCET 5) TABLET PO PRN (13:15)
[2018-06-18] MEDS ORDERED: ESTROGENS CONJ IV 25 MG/5 ML (PREMARIN) VIAL IVP ONE (13:15)
[2018-06-18] MEDS ORDERED: PROMETHAZINE INJ 25 MG/ML (PHENERGAN) AMP IM ONE (13:15)
--- NOTE | 2018-06-18 13:15 | Progress Note-Post Operative ---
Post-Operative Progess Note Surgeon (s)/Representative Phlebotomy Services (s) Surgeon SHIRLEY OROZCO MD Representative Phlebotomy Services: Elijah Plasencia RN Pre-Operative Diagnosis CPP Post-Operative Diagnosis Same with endometriosis, apparent appendicitis, adhesions, ovarian cysts, possible tubal obstruction vs tubal spasm, and pathology pending Procedure & Operative Findings Date of Procedure 06/18/18 Procedure Performed/Findings destruction of endometriosis and aspiration of ovarian cyst, adhesiolysis LS appy, chromopertubation Anesthesia Type GETA Estimated Blood Loss Estimated blood loss (mL): min Specimens/Packing Specimens Removed appendix Packing: None SHIRLEY OROZCO MD Jun 18, 2018 13:15
[2018-06-18] MEDS ORDERED: IBUP-1780 PO (13:19)
[2018-06-18] MEDS ORDERED: OXYC-197 PO (13:19)
--- NOTE | 2018-06-18 13:20 | Discharge Instructions ---
Discharge Instructions Discharge Medications New, Converted or Re-Newed RX: RX on Chart Patient Instructions Patient Instructions: As directed Return to The Hospital For: As directed Activity & Diet Discharge Diet: No Restrictions Activity as Tolerated: Yes Orders-Post D/C & Referrals Follow Up Appt: Call to make follow up appt. for patient in 1 weeks for suture removal. Activity: Rest for 24 hours, than as tolerated. Wound Care: May remove Band-Aid tomorrow. Replace as desired. Keep incisions clean and dry. Wash daily with soap and water. Please call in RX to patient pharmacy. Diet: As tolerated-Clear Liquids only if nauseated. May shower or tub bathe as desired. No driving for 24 hours, no alcoholic beverages for 24 hours, and nothing per vagina (no tampons, douching, or intercourse) for 2 weeks. Patient to return to the clinic as soon as possible for: Temperature greater than 101F, Severe Pain, Foul discharge from incision or vagina, Excessive Bleeding (more than a period). SHIRLEY OROZCO MD Jun 18, 2018 1:20 pm
[2018-06-18] MEDS ORDERED: KETOROLAC 30 MG/ML VIAL ONE (14:15)
[2018-06-18] MEDS ORDERED: GLYCOPYRROLATE 0.2 MG/ML (ROBINUL) 2 ML VIAL ONE (14:15)
[2018-06-18] MEDS ORDERED: NEOSTIGMINE 1 MG/ML 5 ML SYRINGE ONE (14:15)
[2018-06-18] MEDS ORDERED: morphine INJ 10 MG/ML 1ML (SYR OR VIAL) IVP PRN (14:30)
[2018-06-18] MEDS ORDERED: INDIGO CARMINE 8 MG/ML 5 ML AMP INJ ONE (14:45)
[2018-06-18] MEDS ORDERED: WATER (STERILE) FOR INJECTION 10 ML ONE (14:45)
[2018-06-18] MEDS: fentaNYL INJECTION 100 MCG/2 ML AMP IVP PRN ×3 (15:00→15:10)
[2018-06-18] MEDS ORDERED: WATER (STERILE) FOR INJ 10 ML BTL IV ONE (15:00)
[2018-06-18 15:35] VITALS: BP 130/90
[2018-06-18] MEDS ORDERED: oxyCODONE/APAP 5/325MG (PERCOCET 5) TABLET ONE (15:52)
[2018-06-18 16:05] VITALS: BP 126/86
[2018-06-18 16:40] VITALS: BP 117/77
[2018-06-18 17:10] VITALS: BP 117/77
--- NOTE | 2018-06-18 22:09 | OPERATIVE REPORT ---
DATE OF SERVICE: 06/18/2018 PREOPERATIVE DIAGNOSIS: Chronic pelvic pain. POSTOPERATIVE DIAGNOSES: Chronic pelvic pain with endometriosis, ovarian cysts and appendicitis as well as possible tubal obstruction. OPERATIVE PROCEDURE: Diagnostic laparoscopy with pelviscopy for destruction of endometriosis implants, aspiration of ovarian cysts, adhesiolysis, laparoscopic appendectomy as well as chromopertubation. OPERATIVE DESCRIPTION: With the patient in the supine position under satisfactory general anesthesia, she was repositioned in dorsal lithotomy position in the [facility] and prepped and draped in the usual fashion for abdominal and vaginal surgery. Urinary bladder was drained with a straight catheter. A weighted speculum placed in posterior fornix of vagina, cervix exposed and grasped anteriorly with single tooth tenaculum. Uterus was sounded to 9 cm with uterine sound. Cervix was then serially dilated with Umberto dilators to accommodate a uterine manipulator, which was placed using a HUMI manipulator and the bulb was filled with 4 mL of air. The tenaculum and speculum were removed. The patient was brought in low dorsal lithotomy position. A 5 mm incision made in the patient's left upper quadrant. Eventually, a 12 mm incision was made at the incision site inferior to the umbilicus that the patient already have and then a 5 mm incision superior to the symphysis pubis. All incision sites were infiltrated with 0.25% Marcaine with epinephrine prior to incision and port placement. Veress needle was placed in the left upper quadrant. Correct placement confirmed with the water drop test. The abdomen was insufflated with 2.4 liters of carbon dioxide. The Veress needle was removed and a 5 mm Optiview laparoscopic port placed in the left upper quadrant incision. The abdominal wall was transilluminated. A 5 mm port was placed suprapubically and then the pelvis was examined. There was endometriosis implants in both ovarian fossae. There were ovarian cysts. There appeared to be early tubal clubbing bilaterally. There were some adhesions of the mesoappendix and the terminal cecum to the right pelvic brim. The appendix was injected, inflamed nodular and indurated consistent with some degree of chronic and/or acute appendicitis. Laparoscope was brought back to the pelvis. There was an exophytic lesion of tissue at the junction of the left fallopian tube with the ovary, looked to be involved in endometriosis as well. The ovarian cysts on both ovaries were touched with electrocautery to fenestrate them and allow them to drain that fluid was then aspirated out. The endometriosis implants in the ovarian fossae on the right were touched with cautery to destroy them. Care was taken to avoid thermal or traumatic injury to the ureter or to the adjacent vascular structures. The same procedure performed on the left. There was a 1 x 1.5 cm interruption of the peritoneum in the left ovarian fossae. I am not sure whether the ovary had been adherent due to endometriosis, but this looked to be involved with endometriosis. The peritoneum edges were cauterized to destroy any endometriosis implants there. A couple other small endometriosis implants were destroyed. Both fallopian tubes were somewhat dilated appearing the terminal third of each fallopian tube appeared to be maybe a slightly hydrosalpinx. An attempt was made to perform a chromopertubation with a dilute solution of indigo carmine. A total of 60 mL of a dilute indigo carmine was injected through the uterine manipulator injection port. There was no spill from the fallopian tubes on either side. With the endometriosis implants destroyed, the ovarian cysts fenestrated and aspirated and with no remaining abnormal pathology in the pelvis, the anterior cul-de-sac was examined as was the uterus. There was no abnormal pathology noted there. Laparoscope was brought up to the appendix. The appendix was grasped and elevated. The adhesions of the mesoappendix to the pelvic brim were taken down to free the mesoappendix. The base of the appendix was grasped and elevated. The mesoappendix was then perforated close to the base of the appendix, then an Endo-JOSEPH was placed across the base of the appendix and fired. A second Endo-JOSEPH was placed across about 80% of the mesoappendix and then the rest of the mesoappendix was divided with electrocautery taking care to ensure hemostasis in the process. With the appendix completely free, it was placed in an Endobag and brought out through the 12 mm umbilical port. The stump of the appendix was copiously irrigated and treated with several drops of Betadine solution. The pelvis was irrigated and inspected for any remaining abnormal pathology. With no abnormal pathology and with hemostasis complete, the procedure was terminated. The operative instruments removed under direct vision as were the ports. The abdomen was evacuated of the insufflating gas in the process of removing the ports. The skin incisions were closed with interrupted 3-0 nylon sutures. The fascia at the infraumbilical incision was closed with vigyxp-zw-shxoc suture of 2-0 Vicryl. Sponge and needle counts were correct. Estimated blood loss was minimal. The patient tolerated the procedure well and was uneventfully awakened from her general anesthesia and transferred to the recovery room in stable condition with plans for discharge home PAR. Job ID: [id number] DocumentID: [id number] Dictated Date: 06/18/2018 14:20:22 Caster Operator Date: 06/18/2018 22:09:06 Dictated By: SHIRLEY OROZCO MD MTDD
== END 2018-06-18 17:10 | disposition home or self-care (01) ==
LOC: SDC 10:54
PROVIDERS: ATTEND Obstetrics & Gynecology
DX: N80.3 Endometriosis of pelvic peritoneum (principal); N83.201 Unspecified ovarian cyst, right side; N83.202 Unspecified ovarian cyst, left side; K38.0 Hyperplasia of appendix
CPT/HCPCS: 36415; 84703; 85025; 87081

== ENCOUNTER → 2020-07-20 | Outpatient (CLI) | payer BC ==
[~2020-07-20] MED LIST changes: -DESO1TAB72 PO; +DESO1TAB89 PO; +IBUP-1780 PO; -OXYC-197 PO; +OXYC1TAB87 PO; -TRAM50TA2 PO; +TRM50T PO
--- NOTE | 2020-07-20 12:22 | Diagnostic Imaging Report ---
PROCEDURE: CT chest without contrast. TECHNIQUE: Multiple contiguous axial images were obtained through the chest without the use of intravenous contrast. Auto Exposure Controls were utilized during the CT exam to meet ALARA standards for radiation dose reduction. INDICATION: Abnormal chest x-ray from outside study. Outside exam is not available for comparison. No axillary lymphadenopathy is identified. There is a calcified lymph node in the right hilum. No definite mediastinal or hilar lymphadenopathy is detected. No pericardial or pleural fluid is detected. Pulmonary parenchymal evaluation does show a calcified nodule in the right middle lobe measuring 5 mm in size. This likely accounts for the radiograph abnormality. No noncalcified pulmonary nodules are seen. There is no infiltrate or mass. Upper abdomen is unremarkable. Bony structures are nonacute. IMPRESSION: Findings consistent with prior granulomatous exposure with calcified lymph nodes in the right hilum and calcified granuloma in the right middle lobe. No noncalcified pulmonary nodules, masses or infiltrates are detected. Dictated by: Dictated on workstation # [id number]
== END ==
LOC: RAD 11:45
DX: J98.4 Other disorders of lung (principal)
CPT/HCPCS: 71250